=== PATIENT | female | born 1980 | race African-American/Black ===

== ENCOUNTER 2018-08-14 19:15 | Emergency (ER) | payer BC ==
--- NOTE | 2018-08-14 21:00 | ER ---
Nurse's Notes [facility] Name: Sowmya Simms Age: 38 yrs Sex: Female : 1980 Arrival Date: 08/14/2018 Time: 19:19 Bed 24 Private MD: None, None Diagnosis: Acute upper respiratory infection, unspecified Presentation: 08/14 19:41 Presenting complaint: Patient states: "PATIENT COMPLAINS OF LIGHT HEADEDNESS LIKE rv ALMOST PASSING OUT. FEELS HOT AND ALSO SWEATING. PATIENT IS HAVING TROUBLE SWALLOWING.". Transition of care: patient was not received from another setting of care. Onset of symptoms was August 14, 2018 at 05:00. Risk Assessment: Do you want to hurt yourself or someone else? Patient reports no desire to harm self or others. Initial Sepsis Screen: Does the patient meet any 2 criteria? No. Patient's initial sepsis screen is negative. Does the patient have a suspected source of infection? No. Patient's initial sepsis screen is negative. Care prior to arrival: None. 19:41 Method Of Arrival: Ambulatory rv 19:41 Acuity: HENRI 4 rv Triage Assessment: 19:45 General: Appears in no apparent distress. comfortable, Behavior is calm, cooperative. rv Pain: Complains of pain in THROAT. EENT: No signs and/or symptoms were reported regarding the EENT system. Neuro: Level of Consciousness is awake, alert, obeys commands, Oriented to person, place, time, situation. Cardiovascular: Capillary refill < 3 seconds. Respiratory: Airway is patent. GI: No signs and/or symptoms were reported involving the gastrointestinal system. : No signs and/or symptoms were reported regarding the genitourinary system. Derm: Skin is intact. Musculoskeletal: No signs and/or symptoms reported regarding the musculoskeletal system. 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 - Social history:: Smoking status: Patient uses tobacco products, VAPE. - Ebola Screening: : Patient negative for fever greater than or equal to 101.5 degrees Fahrenheit, and additional compatible Ebola Virus Disease symptoms Patient denies exposure to infectious person Patient denies travel to an Ebola-affected area in the 21 days before illness onset. Screenin:48 Abuse screen: Denies threats or abuse. Denies injuries from another. Nutritional rv screening: No deficits noted. Tuberculosis screening: No symptoms or risk factors identified. Fall Risk None identified. Vital Signs: 19:46 BP 122 / 91 LA; Pulse 74; Resp 17 S; Temp 98.5(O); Pulse Ox 100% on R/A; Weight 83.91 rv kg (R); Height 5 ft. 3 in. (160.02 cm) (R); Pain 0/10; 21:19 BP 122 / 86 RA; Pulse 70; Resp 17 S; Pulse Ox 100% on R/A; rv 19:46 Body Mass Index 32.77 (83.91 kg, 160.02 cm) rv ED Course: 19:19 Patient arrived in ED. mr 19:20 None, None is Private Physician. mr 19:27 Delfin Walter PA is PHCP. jr8 19:27 Fahad Gutierrez MD is Attending Physician. jr8 19:44 Triage completed. rv 19:48 Patient has correct armband on for positive identification. Bed in low position. Call rv light in reach. Side rails up X 1. Pulse ox on. NIBP on. 19:48 Patient placed in an exam room, on a stretcher, on pulse oximetry, Patient notified of rv wait time. 21:18 No provider procedures requiring assistance completed. Patient did not have IV access rv during this emergency room visit. Administered Medications: No medications were administered Outcome: 21:00 Discharge ordered by . jr8 21:18 Discharged to home ambulatory. rv 21:18 Condition: good 21:18 Discharge instructions given to patient, Instructed on discharge instructions, follow up and referral plans. medication usage, Demonstrated understanding of instructions, follow-up care, medications, Prescriptions given X 3. 21:20 Patient left the ED. rv Signatures: Louise Kimball mr Delfin Walter PA PA jr8 Harris Parson RN RN rv
--- NOTE | 2018-08-14 21:00 | EDPHYS ---
Physician Documentation [facility] Name: Sowmya Simms Age: 38 yrs Sex: Female : 1980 Arrival Date: 08/14/2018 Time: 19:19 Bed 24 Private MD: None, None ED Physician Fahad Gutierrez HPI: 08/14 20:44 This 38 yrs old Black Female presents to ER via Ambulatory with complaints of Flu jr8 Symptoms. 20:44 Patient started with 2 day history of sore throat, rhinorrhea, chest congestion and jr8 tightness, body aches, and subjective fevers . Severity of symptoms: At their worst the symptoms were mild in the emergency department the symptoms are unchanged. The patient has not experienced similar symptoms in the past. The patient has not recently seen a physician. 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 - Social history:: Smoking status: Patient uses tobacco products, VAPE. - Ebola Screening: : Patient negative for fever greater than or equal to 101.5 degrees Fahrenheit, and additional compatible Ebola Virus Disease symptoms Patient denies exposure to infectious person Patient denies travel to an Ebola-affected area in the 21 days before illness onset. ROS: 20:44 Eyes: Negative for injury, pain, redness, and discharge, Neck: Negative for injury, jr8 pain, and swelling, Abdomen/GI: Negative for abdominal pain, nausea, vomiting, diarrhea, and constipation, Back: Negative for injury and pain, MS/Extremity: Negative for injury and deformity, Skin: Negative for injury, rash, and discoloration, Neuro: Negative for headache, weakness, numbness, tingling, and seizure. 20:44 Constitutional: Positive for body aches, chills, fever. 20:44 ENT: Positive for rhinorrhea, sinus congestion, sore throat. 20:44 Cardiovascular: Positive for chest pain, Negative for edema, orthopnea, palpitations, paroxysmal nocturnal dyspnea. 20:44 Respiratory: Positive for shortness of breath, Negative for cough, dyspnea on exertion, pleurisy, sputum production, wheezing. Exam: 20:44 Eyes: Pupils equal round and reactive to light, extra-ocular motions intact. Lids and jr8 lashes normal. Conjunctiva and sclera are non-icteric and not injected. Cornea within normal limits. Periorbital areas with no swelling, redness, or edema. ENT: Nares patent. Clear nasal drainage noted with mild turbinate erythema, no septal abnormalities noted. Tympanic membranes are normal and external auditory canals are clear. Oropharynx with no redness, swelling, or masses, exudates, or evidence of obstruction, uvula midline. Mucous membranes moist. Neck: Trachea midline, no thyromegaly or masses palpated, and no cervical lymphadenopathy. Supple, full range of motion without nuchal rigidity, or vertebral point tenderness. No Meningismus. Cardiovascular: Regular rate and rhythm with a normal S1 and S2. No gallops, murmurs, or rubs. Normal PMI, no JVD. No pulse deficits. Respiratory: Lungs have equal breath sounds bilaterally, clear to auscultation and percussion. No rales, rhonchi or wheezes noted. No increased work of breathing, no retractions or nasal flaring. Abdomen/GI: Soft, non-tender, with normal bowel sounds. No distension or tympany. No guarding or rebound. No evidence of tenderness throughout. Back: No spinal tenderness. No costovertebral tenderness. Full range of motion. Skin: Warm, dry with normal turgor. Normal color with no rashes, no lesions, and no evidence of cellulitis. MS/ Extremity: Pulses equal, no cyanosis. Neurovascular intact. Full, normal range of motion. Neuro: Awake and alert, GCS 15, oriented to person, place, time, and situation. Cranial nerves II-XII grossly intact. Motor strength 5/5 in all extremities. Sensory grossly intact. Cerebellar exam normal. Normal gait. Vital Signs: 19:46 BP 122 / 91 LA; Pulse 74; Resp 17 S; Temp 98.5(O); Pulse Ox 100% on R/A; Weight 83.91 rv kg (R); Height 5 ft. 3 in. (160.02 cm) (R); Pain 0/10; 21:19 BP 122 / 86 RA; Pulse 70; Resp 17 S; Pulse Ox 100% on R/A; rv 19:46 Body Mass Index 32.77 (83.91 kg, 160.02 cm) rv MDM: 19:53 Patient medically screened. jr8 20:59 Data reviewed: vital signs, nurses notes, lab test result(s), Flu: negative. Data jr8 interpreted: Pulse oximetry: on room air is 100 %. Interpretation: normal. Counseling: I had a detailed discussion with the patient and/or guardian regarding: the historical points, exam findings, and any diagnostic results supporting the discharge/admit diagnosis, lab results, the need for outpatient follow up, a family practitioner, to return to the emergency department if symptoms worsen or persist or if there are any questions or concerns that arise at home. 08/14 19:53 Order name: Strep; Complete Time: 20:46 8 08/14 19:53 Order name: Influenza Screen (a \T\ B); Complete Time: 20:46 8 08/14 19:53 Order name: EKG - Nurse/Tech; Complete Time: 20:02 [facility] 08/14 20:47 Order name: Throat Culture EDMS Administered Medications: No medications were administered Disposition: 08/14/18 21:00 Discharged to Home. Impression: Acute upper respiratory infection, unspecified. - Condition is Stable. - Prescriptions for Augmentin 875- 125 mg Oral Tablet - take 1 tablet by ORAL route every 12 hours for 7 days; 14 tablet. Prednisone 20 mg Oral Tablet - take 1 tablet by ORAL route once daily for 5 days; 5 tablet. Tessalon Perles 100 mg Oral Capsule - take 1 capsule by ORAL route every 8 hours As needed; 15 capsule. - Medication Reconciliation Form, Thank You Letter, Antibiotic Education, Prescription Opioid Use, Work release form form. - Follow up: Private Physician; When: 2 - 3 days; Reason: Recheck today's complaints, Continuance of care, Re-evaluation by your physician. - Problem is new. - Symptoms have improved. Addendum: 08/18/2018 21:56 Co-signature as Attending Physician, Fahad Gutierrez MD. g s Signatures: Dispatcher [employer] EDMS Delfin Walter PA PA jr8 Fahad Gutierrez MD MD gs Vicente, Ronaldo RN RN rv Corrections: (The following items were deleted from the chart) 08/14 21:20 21:00 08/14/2018 21:00 Discharged to Home. Impression: Acute upper respiratory rv infection, unspecified. Condition is Stable. Forms are Medication Reconciliation Form, Thank You Letter, Antibiotic Education, Prescription Opioid Use. Follow up: Private Physician; When: 2 - 3 days; Reason: Recheck today's complaints, Continuance of care, Re-evaluation by your physician. Problem is new. Symptoms have improved. jr8
[2018-08-14] MEDS ORDERED: predniSONE 20 MG TAB ONE (21:28)
--- NOTE | 2018-08-15 20:19 | EKG ---
Test Date: 2018-08-14 Test Time: 20:02:29 Entertainment Dancer: MEASUREMENT RESULTS: Intervals: Rate: 68 MD: 118 QRSD: 92 QT: 394 QTc: 418 [place]: P: 45 MD: 118 QRS: 42 T: 64 INTERPRETIVE STATEMENTS: Normal sinus rhythm Normal ECG No previous ECG available for comparison Electronically Signed On 08-15-18 20:18:23 CDT by Js Vale
== END 2018-08-14 21:20 | disposition home or self-care (01) ==
LOC: ER 19:15
DX: J06.9 Acute upper respiratory infection, unspecified (principal); Z72.0 Tobacco use
CPT/HCPCS: 87070; 87081; 87804; 93005; 99283; J7512

== ENCOUNTER 2019-04-26 10:44 | Emergency (ER) | payer BC ==
[2019-04-26 12:22] LABS: Absolute Lymphocytes (CBC) 1.2 K/uL (0.7-4.9); Hematocrit 37.8 % (36.0-45.0); MPV 7.4 fL (7.6-11.3); RBC Red Blood Cell Count 4.19 M/uL (3.86-4.86)
[2019-04-26] MEDS ORDERED: ONDANSETRON 4 MG/2 ML VIAL ONE (12:29)
[2019-04-26] MEDS ORDERED: NA CHLORIDE 0.9% 1,000 ML ONE (12:29)
[2019-04-26] MEDS ORDERED: MORPHINE 2 MG/ML SYR ONE (12:29)
[2019-04-26 12:39] LABS: Albumin 4.2 g/dL (3.4-5.0); Bilirubin Direct 0.2 mg/dL (0-0.2); Bilirubin Total 0.5 mg/dL (0.2-1.0); Potassium 3.6 mmol/L (3.5-5.1)
[2019-04-26 13:34] LABS: Urine Blood 1+ (NEG); Urine Glucose NEGATIVE (NEG); Urine Protein 1+ (NEG); Urine Specific Gravity >1.030 (1.005-1.030)
--- NOTE | 2019-04-26 14:32 | RAD REPORT ---
EXAM DESCRIPTION: CTAbdomen Pelvis W Contrast - 04/26/2019 2:24 pm CLINICAL HISTORY: Abdominal pain. ABD PAIN COMPARISON: No comparisons TECHNIQUE: Biphasic CT imaging of the abdomen and pelvis was performed with 100 ml non-ionic IV cont rast. All CT scans are performed using dose optimization technique as appropriate and may include automated exposure control or mA/KV adjustment according to patient size. FINDINGS: The lung bases are clear. The liver, spleen, pancreas, adrenal glands and kidneys are within normal limits. No bowel obstruction, free air, free fluid or abscess. Small fat containing umbilical hernia. The govind endix is normal. Prominent retention of stool throughout the colon seen. No evidence of significant l ymphadenopathy. No suspicious bony findings. IMPRESSION: Moderate fecal retention in the colon.
--- NOTE | 2019-04-26 14:39 | ER ---
Nurse's Notes [facility] Name: Sowmya Simms Age: 39 yrs Sex: Female : 1980 Arrival Date: 04/26/2019 Time: 10:48 Bed 20 Private MD: Diagnosis: Constipation;Gastrointestinal hemorrhage, unspecified Presentation: 04/26 11:01 Presenting complaint: Patient states: Bleeding from the anus for about 2 weeks now and ca1 has gotten really bad for the past couple days. Reports abdominal pain mostly on the L side, nausea, vomiting and dizziness. Last Regular BM: 2 weeks ago. Denies diarrhea and fever. No Hx of hemorrhoids. With Hx of Polyps and IBS. Pt is on diet pill called Contrave for 3 months. Transition of care: patient was not received from another setting of care. Onset of symptoms was April 26, 2019. Risk Assessment: Do you want to hurt yourself or someone else? Patient reports no desire to harm self or others. Initial Sepsis Screen: Does the patient meet any 2 criteria? No. Patient's initial sepsis screen is negative. Does the patient have a suspected source of infection? No. Patient's initial sepsis screen is negative. Care prior to arrival: None. 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 - Social history:: Smoking status: Patient/guardian denies using tobacco. - Ebola Screening: : Patient negative for fever greater than or equal to 101.5 degrees Fahrenheit, and additional compatible Ebola Virus Disease symptoms Patient denies exposure to infectious person Patient denies travel to an Ebola-affected area in the 21 days before illness onset No symptoms or risks identified at this time. - Family history:: not pertinent. Screenin:30 Abuse screen: Denies threats or abuse. Denies injuries from another. Nutritional wh screening: No deficits noted. Tuberculosis screening: No symptoms or risk factors identified. Fall Risk None identified. Assessment: 11:30 General: Appears in no apparent distress. Behavior is calm, cooperative, appropriate wh for age. Pain: Complains of pain in abdomen Pain does not radiate. Pain currently is 8 out of 10 on a pain scale. Quality of pain is described as crampy. Neuro: Level of Consciousness is awake, alert, obeys commands, Oriented to person, place, time, situation, Appropriate for age. Cardiovascular: Heart tones S1 S2. Respiratory: Airway is patent Respiratory effort is even, unlabored, Respiratory pattern is regular, symmetrical, Breath sounds are clear bilaterally. GI: Abdomen is flat, non-distended, Bowel sounds present X 4 quads. Abd is soft and non tender X 4 quads. Reports constipation, rectal bleeding. : No signs and/or symptoms were reported regarding the genitourinary system. EENT: No signs and/or symptoms were reported regarding the EENT system. Derm: Skin is intact, is healthy with good turgor. Musculoskeletal: Circulation, motion, and sensation intact. 13:24 Reassessment: Patient appears in no apparent distress at this time. No changes from previously documented assessment. Patient and/or family updated on plan of care and expected duration. Pain level reassessed. Patient is alert, oriented x 3, equal unlabored respirations, skin warm/dry/pink. 15:03 Reassessment: Patient appears in no apparent distress at this time. No changes from previously documented assessment. Patient and/or family updated on plan of care and expected duration. Pain level reassessed. Patient is alert, oriented x 3, equal unlabored respirations, skin warm/dry/pink. Patient states feeling better. Vital Signs: 11:07 BP 143 / 107; Pulse 92; Resp 16 S; Temp 97.1(TE); Pulse Ox 100% on R/A; Weight 88.45 kg ca1 (R); Height 5 ft. 3 in. (160.02 cm) (R); Pain 7/10; 12:27 BP 140 / 99; Pulse 99; Resp 20; Temp 98.2(O); Pulse Ox 100% on R/A; mh5 13:30 BP 130 / 93; Pulse 74; Resp 18; Pulse Ox 100% ; wh 15:04 BP 137 / 95; Pulse 79; Resp 18; Pulse Ox 100% ; wh 11:07 Body Mass Index 34.54 (88.45 kg, 160.02 cm) ca1 ED Course: 10:48 Patient arrived in ED. mr 11:06 Triage completed. [facility] 11:07 Arm band placed on left wrist. [facility] 11:11 Christian Lord is Primary Nurse. 11:15 Tomas Castano MD is Attending Physician. [facility] 12:24 Patient has correct armband on for positive identification. Placed in gown. Bed in low 5 position. Call light in reach. Side rails up X 1. Warm blanket given. Pulse ox on. NIBP on. 12:24 Initial lab(s) drawn, by nv, sent to lab. Urine collected: clean catch specimen, clear. 5 Inserted saline lock: 20 gauge in right antecubital area, using aseptic technique. Blood collected. 14:24 CT Abd/Pelvis - PO and IV Contrast In Process Unspecified. EDFL 15:07 No provider procedures requiring assistance completed. IV discontinued, intact, bleeding controlled, No redness/swelling at site. Administered Medications: 12:38 Drug: NS 0.9% 1000 ml Route: IV; Rate: 1 bolus; Site: right antecubital; 12:40 Drug: Zofran 4 mg Route: IVP; Site: right antecubital; 15:01 Follow up: Response: No adverse reaction; Pain is decreased; RASS: Alert and Calm (0) 12:42 Drug: morphine 2 mg Route: IVP; Site: right antecubital; 15:02 Follow up: Response: No adverse reaction; Pain is decreased; RASS: Alert and Calm (0) 15:01 Not Given (Patient Refused): Dulcolax Suppository 10 mg SD once 15:01 Not Given (Patient Refused): Lactulose 30 grams 45 ml PO once Outcome: 14:39 Discharge ordered by . [facility] 15:08 Discharged to home ambulatory. 15:08 Condition: stable 15:08 Discharge instructions given to patient, Instructed on discharge instructions, follow up and referral plans. medication usage, POC Demonstrated understanding of instructions, follow-up care, medications, POC Prescriptions given X 4. 15:15 Patient left the ED. dm5 Signatures: Dispatcher [facility] Mildred Andrade, COTY RN dm5 Tomas Castano MD MD cha Rivera, Mary mr Dillon, Fidelina 5 Risa, Christian Usman, Rosie, RN RN ca1 Corrections: (The following items were deleted from the chart) 11:07 11:01 Presenting complaint: Patient states: Bleeding from the anus for about 2 weeks ca1 now and has gotten really bad for the past couple days. Reports abdominal pain mostly on the L side, nausea, vomiting and dizziness. Denies diarrhea and fever. No Hx of hemorrhoids. With Hx of Polyps and IBS. Pt is on diet pill called Contrave for 3 months. ca1 19:25 15:08 Discharged to home ambulatory, [facility]
--- NOTE | 2019-04-26 14:40 | EDPHYS ---
Physician Documentation [facility] Name: Sowmya Simms Age: 39 yrs Sex: Female : 1980 Arrival Date: 04/26/2019 Time: 10:48 Bed 20 Private MD: TRAY Physician Tomas Castano HPI: 04/26 11:53 This 39 yrs old Black Female presents to ER via Ambulatory with complaints of Rectal kirby Bleeding, Vomiting. 11:53 The patient presents to the emergency department with bleeding from the rectum/anus, kirby that is moderate. Onset: The symptoms/episode began/occurred 7 day(s) ago. Context: the patient has no known special context relating to the rectal area complaint(s). Modifying factors: The symptoms are alleviated by nothing, The symptoms are aggravated by bowel movement. Associate signs and symptoms: The patient has no apparent associated signs or symptoms. The patient has experienced similar episodes in the past, several times. 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 - Social history:: Smoking status: Patient/guardian denies using tobacco. - Ebola Screening: : Patient negative for fever greater than or equal to 101.5 degrees Fahrenheit, and additional compatible Ebola Virus Disease symptoms Patient denies exposure to infectious person Patient denies travel to an Ebola-affected area in the 21 days before illness onset No symptoms or risks identified at this time. - Family history:: not pertinent. ROS: 11:53 Constitutional: Negative for fever, chills, and weight loss, Eyes: Negative for injury, kirby pain, redness, and discharge, ENT: Negative for injury, pain, and discharge, Neck: Negative for injury, pain, and swelling, Cardiovascular: Negative for chest pain, palpitations, and edema, Respiratory: Negative for shortness of breath, cough, wheezing, and pleuritic chest pain, Back: Negative for injury and pain, : Negative for injury, bleeding, discharge, and swelling, MS/Extremity: Negative for injury and deformity, Skin: Negative for injury, rash, and discoloration, Neuro: Negative for headache, weakness, numbness, tingling, and seizure, Psych: Negative for depression, anxiety, suicide ideation, homicidal ideation, and hallucinations, Allergy/Immunology: Negative for hives, rash, and allergies, Endocrine: Negative for neck swelling, polydipsia, polyuria, polyphagia, and marked weight changes, Hematologic/Lymphatic: Negative for swollen nodes, abnormal bleeding, and unusual bruising. 11:53 Abdomen/GI: Positive for abdominal pain, of the right lower quadrant and left lower quadrant. Exam: 11:53 Constitutional: This is a well developed, well nourished patient who is awake, alert, kirby and in no acute distress. Head/Face: Normocephalic, atraumatic. Eyes: Pupils equal round and reactive to light, extra-ocular motions intact. Lids and lashes normal. Conjunctiva and sclera are non-icteric and not injected. Cornea within normal limits. Periorbital areas with no swelling, redness, or edema. ENT: Nares patent. No nasal discharge, no septal abnormalities noted. Tympanic membranes are normal and external auditory canals are clear. Oropharynx with no redness, swelling, or masses, exudates, or evidence of obstruction, uvula midline. Mucous membranes moist. Neck: Trachea midline, no thyromegaly or masses palpated, and no cervical lymphadenopathy. Supple, full range of motion without nuchal rigidity, or vertebral point tenderness. No Meningismus. Chest/axilla: Normal chest wall appearance and motion. Nontender with no deformity. No lesions are appreciated. Cardiovascular: Regular rate and rhythm with a normal S1 and S2. No gallops, murmurs, or rubs. Normal PMI, no JVD. No pulse deficits. Respiratory: Lungs have equal breath sounds bilaterally, clear to auscultation and percussion. No rales, rhonchi or wheezes noted. No increased work of breathing, no retractions or nasal flaring. Back: No spinal tenderness. No costovertebral tenderness. Full range of motion. Female : Normal external genitalia. Skin: Warm, dry with normal turgor. Normal color with no rashes, no lesions, and no evidence of cellulitis. MS/ Extremity: Pulses equal, no cyanosis. Neurovascular intact. Full, normal range of motion. Neuro: Awake and alert, GCS 15, oriented to person, place, time, and situation. Cranial nerves II-XII grossly intact. Motor strength 5/5 in all extremities. Sensory grossly intact. Cerebellar exam normal. Normal gait. Psych: Awake, alert, with orientation to person, place and time. Behavior, mood, and affect are within normal limits. 11:53 Abdomen/GI: Inspection: abdomen appears normal, Bowel sounds: normal, Palpation: mild abdominal tenderness, in the right lower quadrant and left lower quadrant, Liver: no appreciated palpable abnormalities, Hernia: not appreciated. Vital Signs: 11:07 BP 143 / 107; Pulse 92; Resp 16 S; Temp 97.1(TE); Pulse Ox 100% on R/A; Weight 88.45 kg ca1 (R); Height 5 ft. 3 in. (160.02 cm) (R); Pain 7/10; 12:27 BP 140 / 99; Pulse 99; Resp 20; Temp 98.2(O); Pulse Ox 100% on R/A; mh5 13:30 BP 130 / 93; Pulse 74; Resp 18; Pulse Ox 100% ; wh 15:04 BP 137 / 95; Pulse 79; Resp 18; Pulse Ox 100% ; wh 11:07 Body Mass Index 34.54 (88.45 kg, 160.02 cm) ca1 MDM: 11:15 Patient medically screened. [facility] 11:55 Data reviewed: vital signs, nurses notes, lab test result(s), radiologic studies, CT kirby scan. 04/26 11:53 Order name: Basic Metabolic Panel; Complete Time: 12:52 [facility] 04/26 11:53 Order name: CBC with Diff; Complete Time: 12:52 [facility] 04/26 11:53 Order name: Creatinine for Radiology; Complete Time: 12:52 [facility] 04/26 11:53 Order name: Hepatic Function; Complete Time: 12:52 [facility] 04/26 11:53 Order name: Lipase; Complete Time: 12:52 [facility] 04/26 13:26 Order name: Urine Dipstick--Ancillary (enter results); Complete Time: 14:33 04/26 11:53 Order name: IV Saline Lock; Complete Time: 12:46 [facility] 04/26 11:53 Order name: CT Abd/Pelvis - PO and IV Contrast; Complete Time: 14:43 [facility] 04/26 13:26 Order name: Urine --Ancillary (enter results); Complete Time: 14:33 04/26 11:53 Order name: Labs collected and sent; Complete Time: 12:46 [facility] 04/26 11:53 Order name: Urine Dipstick-Ancillary (obtain specimen); Complete Time: 12:45 [facility] 04/26 11:53 Order name: Urine Test (obtain specimen); Complete Time: 12:45 [facility] Administered Medications: 12:38 Drug: NS 0.9% 1000 ml Route: IV; Rate: 1 bolus; Site: right antecubital; 12:40 Drug: Zofran 4 mg Route: IVP; Site: right antecubital; 15:01 Follow up: Response: No adverse reaction; Pain is decreased; RASS: Alert and Calm (0) 12:42 Drug: morphine 2 mg Route: IVP; Site: right antecubital; 15:02 Follow up: Response: No adverse reaction; Pain is decreased; RASS: Alert and Calm (0) 15:01 Not Given (Patient Refused): Dulcolax Suppository 10 mg [place] once 15:01 Not Given (Patient Refused): Lactulose 30 grams 45 ml PO once Disposition: 04/26/19 14:39 Discharged to Home. Impression: Constipation, Gastrointestinal hemorrhage, unspecified. - Condition is Stable. - Discharge Instructions: Constipation, Adult, Gastrointestinal Bleeding, Constipation, Adult, [id number], Gastrointestinal Bleeding, Asbr-ii-Ezlt, Rectal Bleeding, [id number]. - Prescriptions for Dulcolax 10 mg Rectal Suppository - insert 1 suppository by RECTAL route every 12 hours As needed; 10 suppository. Miralax 17 gram/dose Oral - take 1 packet by ORAL route once daily dilute powder in 8 ounces of water or juice; 14 packet. Bentyl 20 mg Oral Tablet - take 1 tablet by ORAL route every 6 hours As needed; 20 tablet. Zofran 4 mg Oral Tablet - take 1 tablet by ORAL route every 12 hours As needed; 20 tablet. - Medication Reconciliation Form, Thank You Letter, Antibiotic Education, Prescription Opioid Use form. - Follow up: Private Physician; When: 2 - 3 days; Reason: Recheck today's complaints, Continuance of care, Re-evaluation by your physician. - Problem is new. - Symptoms have improved. Signatures: Dispatcher [employer] Mildred Wilder, RN RN dm5 Tomas Castano MD MD cha Habalo, Winsy wh Acob, Cheryl RN RN ca1 Corrections: (The following items were deleted from the chart) 15:15 14:39 04/26/2019 14:39 Discharged to Home. Impression: Constipation; Gastrointestinal dm5 hemorrhage, unspecified. Condition is Stable. Forms are Medication Reconciliation Form, Thank You Letter, Antibiotic Education, Prescription Opioid Use. Follow up: Private Physician; When: 2 - 3 days; Reason: Recheck today's complaints, Continuance of care, Re-evaluation by your physician. Problem is new. Symptoms have improved. kirby
[2019-04-26] MEDS ORDERED: LACTULOSE 20 GM/30 ML UCUP ONE (14:45)
[2019-04-26] MEDS ORDERED: BISACODYL 10 MG RECTAL SUPP ONE (14:45)
[2019-04-26 16:21] VITALS: O2SAT 100
[2019-04-26 16:23] VITALS: TEMP 98.2
[2019-04-26 16:25] VITALS: BP 137/95
== END 2019-04-26 15:15 | disposition home or self-care (01) ==
LOC: ER 10:44
DX: K59.00 Constipation, unspecified (principal)
CPT/HCPCS: 85025; 80048; 36415; 81025; 80076; 81003; 83690; 74177; 96375; 96374; 99284; Q9967; J2270; J7030; J2405

== ENCOUNTER 2021-07-25 18:16 | Emergency (ER) | payer SELFPAY ==
--- OUTSIDE RECORDS SUMMARY | 2021-07-25 18:19 | XMS REPORT | Continuity of Care Document ---
:1980 Author Organization [facility] t Address [address] [place] [address] Care Team Providers Name Role Phone Lyric Primary Care Physician Arthur VINCENT, N Attending Clinician Marilu GIBSON Attending Clinician Unavailable Payers Payer Name Policy Type Policy Number Effective Date Expiration Date S ource Problems Condition Condition Condition Status Onset Resolution Last Treating Co mments Source Name Details Category Date Date Treatment Clinician Date No known No known Disease Unive rs active active ity of problems problems [facility] Allergies, Adverse Reactions, Alerts Allergy Allergy Status Severity Reaction(s) Onset Inactive Treating Comm ents Source Name Type Date Date Clinician NO KNOWN Drug Active Univers ALLERGIE Class ity of S [facility] Social History Social Habit Start Date Stop Date Quantity Comments Source History of Smoker University of tobacco use [facility] Exposure to Not sure [facility] SARS-CoV-[address] [facility] (event) [place] Tobacco use and 2021-02-28 2021-02-28 Never used Universit y of exposure 00:00:00 00:00:00 [facility] Alcohol intake 2021-02-28 2021-02-28 Lifetime University of 00:00:00 00:00:00 non-drinker [facility] (finding) [place] Sex Assigned At [birth year] Universit y of 00:00:00 00:00:00 [facility] Smoking Status Start Date Stop Date Source Former smoker 2021-02-28 00:00:00 2021-02-28 00:00:00 Universi ty [facility] Medications Ordered Filled Start Stop Current Ordering Indication Dosage Frequency Signature Comments Components Source Medication Medication Date Date Medication? Clinician (SIG) Name Name No known 2020-05 No Univers medications 0-07 ity of 15:22: [address] Vital Signs Vital Name Observation Time Observation Value Comments Source Systolic blood 2021-02-28 20:03:00 117 mm[Hg] Univer [facility] Diastolic blood 2021-02-28 20:03:00 73 mm[Hg] Unive rsity [facility] Heart rate 2021-02-28 20:03:00 70 /min [facility] Body temperature 2021-02-28 20:03:00 36.67 [facility] Respiratory rate 2021-02-28 20:03:00 18 /min [facility] Body height 2021-02-28 20:03:00 160 cm [facility] Body weight 2021-02-28 20:03:00 76.114 kg [facility] BMI 2021-02-28 20:03:00 29.72 kg/m2 [facility] Procedures This patient has no known procedures. Encounters Start End Encounter Admission Attending Care Care Encounter Source Date/Time Date/Time Type Type Clinicians Facility Department ID 2021-02-28 2021-02-28 Office Arthur [facility] [id number] Univers 14:47:40 15:55:15 Visit Cande Michel [employer]TER [id number] it y of REGIONAL [id number] Vamsi as MATERNAL [id number] Med ical & CHILD [address] [place] [address] 2021-02-28 2021-02-28 Outpatient R [facility] [id number] Univers 14:45:00 14:45:00 CANDE vergara [facility] Results This patient has no known results.
[2021-07-25 21:57] LABS: Absolute Lymphocytes (CBC) 1.6 K/uL (0.7-4.9); Hematocrit 37.4 % (36.0-45.0); Lymphocytes % 46.2 % (15.3-44.8); MPV 7.7 fL (7.6-11.3); RBC Red Blood Cell Count 3.98 M/uL (3.86-4.86)
[2021-07-25 22:01] LABS: Protime INR 0.95
[2021-07-25 22:08] LABS: ALT/SGPT 15 U/L (12-78); AST/SGOT 12 U/L (15-37); Alkaline Phosphatase 107 U/L (45-117); BUN Blood Urea Nitrogen 4 mg/dL (7-18); Bicarbonate 24 mmol/L (21-32); Bilirubin Total 0.4 mg/dL (0.2-1.0); Glucose Level 88 mg/dL (74-106); Lipase 81 U/L (73-393); Potassium 3.5 mmol/L (3.5-5.1); Protein, Total 7.8 g/dL (6.4-8.2); Sodium Level 137 mmol/L (136-145)
[2021-07-25 22:16] LABS: Bilirubin Direct < 0.1 mg/dL (0-0.2)
[2021-07-25 22:57] LABS: Urine Blood Trace-intact (Negative); Urine Glucose Negative (Negative); Urine Protein Negative (Negative); Urine Specific Gravity 1.025 (1.005-1.030); Urine pH 5.5 (5.0-7.0)
[2021-07-25 23:08] LABS: Urine Specific Gravity/Preg 1.025 (1.005-1.030)
--- NOTE | 2021-07-26 00:08 | ER ---
Nurse's Notes [facility] Name: Sowmya Simms Age: 41 yrs Sex: Female : 1980 Arrival Date: 07/25/2021 Time: 18:19 Bed 18 Private MD: Sandhya Gunter Diagnosis: Other hemorrhoids;GI bleed Presentation: 07/25 18:59 Chief complaint: Patient states: L sided abd pain for 10 days. Rectal bleeding for 10 ll1 days with nausea. No fever. Feels fatigue and weak. Coronavirus screen: Vaccine status: Patient reports being unvaccinated. Client denies travel out of the [place] in the last 14 days. At this time, the client does not indicate any symptoms associated with coronavirus-19. Ebola Screen: Patient denies travel to an Ebola-affected area in the 21 days before illness onset. Initial Sepsis Screen: Does the patient meet any 2 criteria? No. Patient's initial sepsis screen is negative. Does the patient have a suspected source of infection? Yes: Acute abdominal pain. Risk Assessment: Do you want to hurt yourself or someone else? Patient reports no desire to harm self or others. Onset of symptoms was July 19, 2021. 18:59 Method Of Arrival: Ambulatory ll1 18:59 Acuity: HENRI 3 ll1 Triage Assessment: 19:02 General: Appears uncomfortable, Behavior is calm, cooperative, appropriate for age. ll1 Pain: Complains of pain in L abd Quality of pain is described as aching. Neuro: No deficits noted. Cardiovascular: No deficits noted. Respiratory: No deficits noted. GI: Reports lower abdominal pain, upper abdominal pain, rectal bleeding, nausea. 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 Flu vaccine status is unknown. - Social history:: Smoking status: Patient denies any tobacco usage or history of. Screenin:14 Abuse screen: Denies threats or abuse. Denies injuries from another. Nutritional wen screening: No deficits noted. Tuberculosis screening: No symptoms or risk factors identified. Fall Risk None identified. Assessment: 21:12 General: Appears in no apparent distress. comfortable, Behavior is calm, cooperative, wen Reports "passing blood clots...this happened before, but it was because I was constipated..I called the tele doc and they told me to come in...". Pain: Complains of pain in just beneath both breasts, bilaterally. GI: Reports bloody stool. 21:16 GI: Bowel sounds present X 4 quads. wen 21:18 GI: Abd is soft and non tender X 4 quads. wen 23:15 Reassessment: Hcg was negative. The UA dip was given to the reception clerk and posted in the wen chart. The pt is resting comfortably and awaiting her CT. Vital Signs: 18:59 BP 132 / 87; Pulse 79; Resp 17; Temp 98.1; Pulse Ox 100% ; Weight 77.11 kg; Height 5 ll1 ft. 3 in. (160.02 cm); Pain 7/10; 21:11 BP 113 / 74; Pulse 73; Resp 16; Temp 98.2; Pulse Ox 100% on R/A; Pain 0/10; wen 22:14 BP 107 / 75; Pulse 73; Resp 16; Pulse Ox 100% on R/A; Pain 0/10; wen 23:12 BP 105 / 66; Pulse 72; Resp 16; Pulse Ox 100% on R/A; Pain 0/10; wen 18:59 Body Mass Index 30.11 (77.11 kg, 160.02 cm) ll1 ED Course: 18:19 Patient arrived in ED. mr 18:19 Sandhya Gunter is Private Physician. mr 19:01 Triage completed. ll1 19:03 Arm band placed on. ll1 21:11 Verona Garza, COTY is Primary Nurse. wen 21:12 Williams Bolden MD is Attending Physician. sp3 21:14 Patient has correct armband on for positive identification. Placed in gown. Bed in low wen position. Call light in reach. Side rails up X 1. athletic monitor on. Pulse ox on. NIBP on. Warm blanket given. Verbal reassurance given. 21:14 Inserted saline lock: 20 gauge in right antecubital area, using aseptic technique. wen Blood collected. 21:16 No provider procedures requiring assistance completed. wen 21:47 Ptt, Activated Sent. wen 21:47 PT-INR Sent. wen 21:48 Basic Metabolic Panel Sent. wen 21:48 CBC with Diff Sent. wen 21:48 Hepatic Function Sent. wen 21:48 Lipase Sent. wen 23:[address] via wheelchair. wen 23:39 Patient moved back from CT. wen 23:46 CT Abd/Pelvis - IV Contrast Only In Process Unspecified. EDMS 07/26 00:30 intact, bleeding controlled, No redness/swelling at site. Pressure dressing applied. wen Administered Medications: No medications were administered Outcome: 07/25 21:16 Condition: stable wen 07/26 00:08 Discharge ordered by . sp3 00:29 Patient left the ED. wen 00:30 Discharged to home ambulatory. wen 00:30 Discharge instructions given to patient. Signatures: Dispatcher [employer] EDOR Louise Kimball Lynsay, RN RN ll1 Williams Bolden MD MD sp3 Verona Garza RN RN wen Corrections: (The following items were deleted from the chart) 07/25 19:02 19:01 PSHx: None; ll1 ll1
--- NOTE | 2021-07-26 00:08 | EDPHYS ---
Physician Documentation [facility] Name: Sowmya Simms Age: 41 yrs Sex: Female : 1980 Arrival Date: 07/25/2021 Time: 18:19 Bed 18 Private MD: Sandhya Gunter ED Physician Williams Bolden HPI: 07/25 22:31 This 41 yrs old Black Female presents to ER via Ambulatory with complaints of Abdominal sp3 Pain, Rectal Bleeding. 22:31 41-year-old female with history of asthma, colon polyps, prior GI bleed, prior bleeding sp3 hemorrhoids, presents to the ED for bright red blood per rectum and dark red blood clots with bowel movements. Patient has no pain, headache, chest pain, shortness of breath, nausea, vomiting, constipation, diarrhea, melanotic stool, generalized weakness, or any other findings. Symptoms started earlier today and due to her prior history contacted her GI physician who told her to come in for evaluation.. 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 Flu vaccine status is unknown. - Social history:: Smoking status: Patient denies any tobacco usage or history of. ROS: 22:33 Constitutional: Negative for fever, chills, and weight loss, Eyes: Negative for injury, sp3 pain, redness, and discharge, ENT: Negative for injury, pain, and discharge, Neck: Negative for injury, pain, and swelling, Cardiovascular: Negative for chest pain, palpitations, and edema, Respiratory: Negative for shortness of breath, cough, wheezing, and pleuritic chest pain, Back: Negative for injury and pain, MS/Extremity: Negative for injury and deformity, Skin: Negative for injury, rash, and discoloration, Neuro: Negative for headache, weakness, numbness, tingling, and seizure, Allergy/Immunology: Negative for hives, rash, and allergies, Endocrine: Negative for neck swelling, polydipsia, polyuria, polyphagia, and marked weight changes. 22:33 All other systems are negative. Exam: 22:33 Constitutional: This is a well developed, well nourished patient who is awake, alert, sp3 and in no acute distress. Head/Face: Normocephalic, atraumatic. Eyes: Pupils equal round and reactive to light, extra-ocular motions intact. Lids and lashes normal. Conjunctiva and sclera are non-icteric and not injected. Cornea within normal limits. Periorbital areas with no swelling, redness, or edema. ENT: Nares patent. No nasal discharge, no septal abnormalities noted. External auditory canals are clear. Oropharynx with no redness, swelling, or masses, exudates, or evidence of obstruction, uvula midline. Mucous membranes moist. Neck: Trachea midline, no thyromegaly or masses palpated, and no cervical lymphadenopathy. Supple, full range of motion without nuchal rigidity, or vertebral point tenderness. No Meningismus. Chest/axilla: Normal chest wall appearance and motion. Nontender with no deformity. No lesions are appreciated. Cardiovascular: Regular rate and rhythm with a normal S1 and S2. No gallops, murmurs, or rubs. Normal PMI, no JVD. No pulse deficits. Respiratory: Lungs have equal breath sounds bilaterally, clear to auscultation and percussion. No rales, rhonchi or wheezes noted. No increased work of breathing, no retractions or nasal flaring. Back: No spinal tenderness. No costovertebral tenderness. Full range of motion. Skin: Warm, dry with normal turgor. Normal color with no rashes, no lesions, and no evidence of cellulitis. MS/ Extremity: Pulses equal, no cyanosis. Neurovascular intact. Full, normal range of motion. Neuro: Awake and alert, GCS 15, oriented to person, place, time, and situation. Cranial nerves II-XII grossly intact. Motor strength 5/5 in all extremities. Sensory grossly intact. Cerebellar exam normal. Normal gait. Psych: Awake, alert, with orientation to person, place and time. Behavior, mood, and affect are within normal limits. 22:33 Abdomen/GI: Abdomen is soft, nontender, nondistended with no peritoneal signs including rebound or guarding. Rectal exam demonstrates external hemorrhoid at approximately 6 PM location with mild bleeding. Stool is normal color and not melanotic.. Vital Signs: 18:59 BP 132 / 87; Pulse 79; Resp 17; Temp 98.1; Pulse Ox 100% ; Weight 77.11 kg; Height 5 ll1 ft. 3 in. (160.02 cm); Pain 7/10; 21:11 BP 113 / 74; Pulse 73; Resp 16; Temp 98.2; Pulse Ox 100% on R/A; Pain 0/10; wen 22:14 BP 107 / 75; Pulse 73; Resp 16; Pulse Ox 100% on R/A; Pain 0/10; wen 23:12 BP 105 / 66; Pulse 72; Resp 16; Pulse Ox 100% on R/A; Pain 0/10; wen 18:59 Body Mass Index 30.11 (77.11 kg, 160.02 cm) ll1 MDM: 21:48 Patient medically screened. sp3 22:34 Data reviewed: vital signs, nurses notes. ED course: 41-year-old female with bright red sp3 blood per rectum likely from hemorrhoidal source. Will obtain CT scan of the abdomen/pelvis, and obtain laboratory values. If work-up is negative, will discharge patient home with follow-up to her GI physician. I am not highly suspicious for hemorrhagic shock, brisk GI bleed, sepsis, mesenteric ischemia, ischemic bowel, or any other critical findings at this time.. 07/26 00:06 ED course: CT scan demonstrates no acute intestinal abnormality. Laboratory values sp3 reviewed and H\T\H are normal. Will discharge patient home at this time with GI follow-up.. 07/25 21:36 Order name: Basic Metabolic Panel; Complete Time: 23:40 sp3 07/25 21:36 Order name: CBC with Diff; Complete Time: 23:40 sp3 07/25 21:36 Order name: Hepatic Function; Complete Time: 23:40 sp3 07/25 21:36 Order name: Lipase; Complete Time: 23:40 sp3 07/25 21:36 Order name: PT-INR; Complete Time: 23:40 sp3 07/25 21:36 Order name: Ptt, Activated; Complete Time: 23:40 sp3 07/25 21:36 Order name: IV Saline Lock; Complete Time: 21:47 sp3 07/25 21:36 Order name: Labs collected and sent; Complete Time: 21:48 sp3 07/25 21:36 Order name: CT Abd/Pelvis - IV Contrast Only sp3 07/25 21:36 Order name: Urine Dipstick-Ancillary (obtain specimen); Complete Time: 21:47 sp3 07/25 22:45 Order name: Test, Serum sv1 07/25 22:45 Order name: Test Serum, Qual[place]; Complete Time: 23:40 EDMS 07/25 22:56 Order name: Urine Dipstick-Ancillary; Complete Time: 23:40 EDMS 07/25 22:57 Order name: Urine --Ancillary (enter results); Complete Time: 23:40 cs9 07/25 21:36 Order name: Urine Test (obtain specimen); Complete Time: 21:47 sp3 Administered Medications: No medications were administered Disposition Summary: 07/26/21 00:08 Discharge Ordered Location: Home sp3 Condition: Stable sp3 Diagnosis - Other hemorrhoids sp3 - GI bleed sp3 Discharge Instructions: - Discharge Summary Sheet sp3 - Gastrointestinal Bleeding sp3 - Hemorrhoids sp3 Forms: - Medication Reconciliation Form sp3 - Thank You Letter sp3 - Antibiotic Education sp3 - Prescription Opioid Use sp3 Signatures: Dispatcher [employer] Anniat Sherman, RN RN ll1 Williams Bolden MD MD sp3 Corrections: (The following items were deleted from the chart) 07/25 19:02 19:01 PSHx: None; ll1 ll1
[2021-07-26 04:13] VITALS: O2SAT 100
[2021-07-26 04:14] VITALS: TEMP 98.2
[2021-07-26 04:17] VITALS: BP 105/66
--- NOTE | 2021-07-26 11:05 | RAD REPORT ---
EXAM DESCRIPTION: CT - Abdomen Pelvis W Contrast - 07/26/2021 3:42 am CLINICAL HISTORY: 41 years Female ABD PAIN COMPARISON: 04/26/2019. TECHNIQUE: Contiguous axial images obtained through the abdomen and pelvis following IV contrast. Re formatted images obtained. This exam was performed according to our department optimization program which includes automated exp osure control, adjustment of the mA and/or kv according to patient size and/or use of iterative recon struction technique. FINDINGS: The lung bases are clear. Small area of enhancement in the right lobe of the liver which may represent a hemangioma. The spleen and pancreas appear unremarkable. No adrenal masses. The kidneys appear unremarkable. No hydronephrosis. The gallbladder is visualized. No aneurysmal dilatation of the aorta. The ascending, transverse and descending colon are slightly distended with stool. No bowel obstructio n. The appendix appears unremarkable. Fibroids in the uterus. Tubular fluid-filled structures around the uterus which could be from hydrosa lpinx or pyosalpinx. There is a probable corpus luteum cyst in the right ovary. Small amount of free fluid in the pelvis. Small fat-containing umbilical hernia. No acute osseous abnormality is identified. IMPRESSION: 1. Tubular fluid-filled structures around the uterus which could be from hydrosalpinx or pyosalpinx. Sonography could be utilized to further evaluate. 2. There is a probable corpus luteum cyst in the right ovary. 3. Small amount of free fluid in the pelvis. 4. Fibroids in the uterus. 5. Small area of enhancement in the right lobe of the liver which may represent a hemangioma. 6. The ascending, transverse and descending colon are slightly distended with stool. Electronically signed by: Santos Acosta MD 07/26/2021 12:03 AM DEVELOPMENT REPRESENTATIVE Due to temporary technical issues with the PACS/Fluency reporting system, reports are being signed by the in house radiologist without review as a courtesy to ensure prompt reporting. The interpreting r adiologist is fully responsible for the content of the report.
== END 2021-07-26 00:29 | disposition home or self-care (01) ==
LOC: ER 18:16
DX: K64.8 Other hemorrhoids (principal); Z91.013 Allergy to seafood
CPT/HCPCS: 36415; 74177; 80048; 80076; 81003; 81025; 83690; 84703; 85025; 85610; 85730; 99285; Q9967

== ENCOUNTER 2021-07-28 10:16 | Emergency (ER) | payer SELFPAY ==
--- OUTSIDE RECORDS SUMMARY | 2021-07-28 10:19 | XMS REPORT | Continuity of Care Document ---
:1980 Author Organization [facility] t Address [address] [place] [address] Care Team Providers Name Role Phone Lyric [...] rs active active ity of problems problems [facility] Allergies, Adverse Reactions, Alerts Allergy Allergy Status Severity Reaction(s) Onset Inactive Treating Comm ents Source Name Type Date Date Clinician NO KNOWN Drug Active Univers ALLERGIE Class ity of S [facility] Social History Social Habit Start Date Stop Date Quantity Comments Source History of Smoker University of tobacco use [facility] Exposure to Not sure [facility] SARS-CoV-2 [facility] (event) [place] Tobacco use and 2021-02-28 2021-02-28 Never used Universit y of exposure 00:00:00 00:00:00 [facility] Alcohol intake 2021-02-28 2021-02-28 Lifetime University of 00:00:00 00:00:00 non-drinker [facility] (finding) [place] Sex Assigned At [birth year] Universit y of 00:00:00 00:00:00 [facility] Smoking Status Start Date Stop Date Source Former smoker 2021-02-28 00:00:00 2021-02-28 00:00:00 Universi ty [facility] Medications Ordered Filled Start Stop Current Ordering Indication Dosage Frequency Signature Comments Components Source Medication Medication Date Date Medication? Clinician (SIG) Name Name No known 2020-05 No Univers medications 0-07 ity of 15:22: [address] Vital Signs Vital Name Observation Time Observation Value Comments Source Systolic blood 2021-02-28 20:03:00 117 mm[Hg] Univer sity of [facility] Diastolic blood 2021-02-28 20:03:00 73 mm[Hg] Unive rsity [facility] Heart rate 2021-02-28 20:03:00 70 /min [facility] Body temperature 2021-02-28 20:03:00 36.67 Tiny [facility] Res[facility] rate 2021-02-28 20:03:00 18 /min [facility] Body height 2021-02-28 20:03:00 160 cm [facility] Body weight 2021-02-28 20:03:00 76.114 kg [facility] BMI 2021-02-28 20:03:00 29.72 kg/m2 [facility] Procedures This patient has no known procedures. Encounters Start End Encounter Admission Attending Care Care Encounter Source Date/Time Date/Time Type Type Clinicians Facility Department ID 2021-02-28 2021-02-28 Office Arthur [facility] [id number] Univers 14:47:40 15:55:15 Visit Cande Michel [employer] [id number] it y of REGIONAL [id number] Vamsi as MATERNAL [id number] Med ical & CHILD [address] [place] [address] 2021-02-28 2021-02-28 Outpatient R ARTHUR [facility] [id number] Univers 14:45:00 14:45:00 CANDE vergara [facility] Results This patient has no known results.
[2021-07-28 10:38] LABS: Urine Blood Trace-intact (Negative); Urine Glucose Negative (Negative); Urine Protein Negative (Negative); Urine pH 8.5 (5.0-7.0)
[2021-07-28 10:48] LABS: Urine RBC <5 /HPF (NONE SEEN)
[2021-07-28 10:49] LABS: Urine Bacteria >50 /HPF (<20); Urine Mucus LIGHT /HPF (NONE SEEN)
--- NOTE | 2021-07-28 12:42 | RAD REPORT ---
EXAM DESCRIPTION: US - Pelvis Complete - 07/28/2021 11:59 am CLINICAL HISTORY: LLQ PAIN COMPARISON: Abdomen Pelvis W Contrast dated 07/25/2021 TECHNIQUE: Transabdominal pelvic sonography was performed. FINDINGS: Transabdominal and endovaginal pelvic sonography were performed. Findings are incorporated into a single report that is detailed in the endovaginal examination. IMPRESSION: Transabdominal sonography was performed with findings incorporated into the endovaginal ultrasound report.
--- NOTE | 2021-07-28 12:46 | RAD REPORT ---
EXAM DESCRIPTION: US - Transvaginal Study Probe - 07/28/2021 11:59 am CLINICAL HISTORY: ABD PAIN COMPARISON: Pelvis Complete dated 07/28/2021; Abdomen Pelvis W Contrast dated 07/25/2021 TECHNIQUE: Endovaginal sonography was performed. FINDINGS: Transabdominal and endovaginal pelvic sonography examinations were performed with the find ings from growth examinations incorporated into this report. Uterus measures approximately 8 x 5 x 5.5 cm. Endometrial stripe is 9 mm in maximum thickness with no endometrial mass or polyp identifiable. The endometrium - myometrium interface is preserved. Approxi mately 4 centimeter oval heterogeneous hypoechoic mass projects from the anterior margin of the uteru s. This is believed to be an exophytic fibroid a correlate to a finding on the CT study of July 25. Trace amount of free fluid is seen in the cul de sac, within physiologic limits. No fallopian tube dilatation is identified. Ovaries were visualized on the transabdominal examination . Both are normal size with no dominant solid or cystic mass is identifiable. Doppler evaluation show s normal blood flow in the ovarian stroma. No adnexal abnormalities identified. IMPRESSION: Approximately 4 centimeter exophytic anterior uterine wall fibroid. Uterus is otherwise unremarkable. No ovarian or adnexal abnormalities identified.
--- NOTE | 2021-07-28 12:49 | ER ---
Nurse's Notes [facility] Name: Sowmya Simms Age: 41 yrs Sex: Female : 1980 Arrival Date: 07/28/2021 Time: 10:19 Bed 19 Private MD: Sandhya Gunter Diagnosis: UTI/ Urinary tract infection, site not specified Presentation: 07/28 10:28 Chief complaint: Patient states: ABD pain x 2 weeks, denies N/V/D. Coronavirus screen: vg1 Vaccine status: Patient reports being unvaccinated. Client denies travel out of the [place] in the last 14 days. Ebola Screen: Patient negative for fever greater than or equal to 101.5 degrees Fahrenheit, and additional compatible Ebola Virus Disease symptoms. Initial Sepsis Screen: Does the patient meet any 2 criteria? No. Patient's initial sepsis screen is negative. Does the patient have a suspected source of infection? No. Patient's initial sepsis screen is negative. Risk Assessment: Do you want to hurt yourself or someone else? Patient reports no desire to harm self or others. Onset of symptoms was July 08, 2021. 10:28 Method Of Arrival: Ambulatory vg1 10:28 Acuity: HENRI 3 vg1 Triage Assessment: 10:30 General: Appears in no apparent distress. comfortable, Behavior is calm, cooperative. vg1 Pain: Complains of pain in umbilical area, left upper quadrant, right lower quadrant and left lower quadrant Pain currently is 8 out of 10 on a pain scale. GI: Abdomen is round non-distended. 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 07/08/2021 vg1 Historical: - Allergies: 10:30 Nuts; vg1 10:30 SEAFOOD; vg1 - Home Meds: 10:30 None [Active]; vg1 - PMHx: 10:30 Asthma; vg1 - Immunization history:: Client reports having NOT received the Covid vaccine. - Social history:: Smoking status: Patient denies any tobacco usage or history of. Screenin:30 Abuse screen: Denies threats or abuse. jh6 10:30 Nutritional screening: No deficits noted. Tuberculosis screening: No symptoms or risk jh6 factors identified. Fall Risk None identified. Assessment: 10:39 General: Appears in no apparent distress. comfortable, well groomed, well developed, jh6 Behavior is calm, cooperative. Pain: Complains of pain in umbilical area, left upper quadrant and left lower quadrant Pain currently is 2 out of 10 on a pain scale. Quality of pain is described as aching. : Reports cramping, in bilateral lower quadrant(s). 10:42 GI: Bowel sounds present X 4 quads. Abd is non tender. jh6 11:52 Reassessment: No changes from previously documented assessment. jh6 13:00 Reassessment: Patient and/or family updated on plan of care and expected duration. Pain jh6 level reassessed. Patient is alert, oriented x 3, equal unlabored respirations, skin warm/dry/pink. 13:00 Pain: Complains of pain in abdomen Pain currently is 3 out of 10 on a pain scale. jh6 Vital Signs: 10:28 BP 138 / 80; Pulse 80; Resp 16; Temp 98.6(O); Pulse Ox 100% ; Weight 77.11 kg; Height 5 vg1 ft. 3 in. (160.02 cm); Pain 8/10; 11:20 BP 118 / 85; Pulse 76; Resp 18; Pulse Ox 100% ; Pain 2/10; jh6 13:00 BP 123 / 76; Pulse 80; Resp 17; Pulse Ox 100% ; Pain 3/10; jh6 10:28 Body Mass Index 30.11 (77.11 kg, 160.02 cm) vg1 ED Course: 10:19 Patient arrived in ED. as 10:19 Sandhya Gunter is Private Physician. as 10:20 Deirdre Mitchell FNP-C is [facility]. kb 10:20 Kolby Power MD is Attending Physician. kb 10:30 Triage completed. vg1 10:30 Suzette Banuelos, COTY is Primary Nurse. jh6 10:30 Arm band placed on. vg1 10:41 Urine collected: clean catch specimen, clear, Amount Voided: 30mL. jh6 10:41 No provider procedures requiring assistance completed. jh6 10:42 Bed in low position. Call light in reach. Side rails up X 1. jh6 10:53 u/s at bedide. jh6 11:59 US Transvaginal Study (Probe) In Process Unspecified. EDMS 11:59 Pelvis Complete In Process Unspecified. EDMS 13:15 IV discontinued, intact, bleeding controlled, No redness/swelling at site. Pressure 6 dressing applied. Administered Medications: No medications were administered Outcome: 12:48 Discharge ordered by . rafael 13:21 Discharged to home ambulatory. 6 13:21 Condition: good 13:21 Discharge instructions given to patient, Instructed on discharge instructions, follow up and referral plans. Demonstrated understanding of instructions, follow-up care, medications, Prescriptions given X 1. 13:22 Patient left the ED. 6 Signatures: Dispatcher [employer] EDAR Deirdre Mitchell, SHUTTLE FILLER-C MELISA-Jessi Tapia Victoria, RN RN vg1 Suzette Banuelos, RN RN jh6
--- NOTE | 2021-07-28 12:49 | EDPHYS ---
Physician Documentation [facility] Name: Sowmya Simms Age: 41 yrs Sex: Female : 1980 Arrival Date: 07/28/2021 Time: 10:19 Bed 19 Private MD: Sandhya Gunter ED Physician Kolby Power HPI: 07/28 12:00 This 41 yrs old Black Female presents to ER via Ambulatory with complaints of Abdominal kb Pain, Pelvic Pain. 12:00 The patient presents with abdominal pain in the lower abdomen. Modifying factors: The kb symptoms are alleviated by nothing, the symptoms are aggravated by nothing. Severity of pain: At its worst the pain was moderate in the emergency department the pain is unchanged. The patient has not experienced similar symptoms in the past. The patient has not recently seen a physician. 12:01 Onset: The symptoms/episode began/occurred 2 week(s) ago. The symptoms do not radiate. kb Associated signs and symptoms: none. The symptoms are described as constant. Pt reports diffuse abd pain, worse across the lower abd that started 2 weeks ago. Was seen here recently and had blood work and CT done. States she came back today because she has been looking over her results and looking things up. Pt believes she needs antibiotics.. 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 - Social history:: Smoking status: Patient denies any tobacco usage or history of. ROS: 12:00 Constitutional: Negative for fever, chills, and weight loss. kb 12:00 Abdomen/GI: Positive for abdominal pain, Negative for nausea, vomiting, and diarrhea. 12:00 : Positive for urinary frequency. 12:00 All other systems are negative. Exam: 12:00 Constitutional: This is a well developed, well nourished patient who is awake, alert, kb and in no acute distress. Head/Face: Normocephalic, atraumatic. ENT: Moist Mucous membranes Cardiovascular: Regular rate and rhythm with a normal S1 and S2. No gallops, murmurs, or rubs. No pulse deficits. Respiratory: Respirations even and unlabored. No increased work of breathing. Talking in full sentences Abdomen/GI: Soft, non-tender. No distention Skin: Warm, dry with normal turgor. Normal color. MS/ Extremity: Pulses equal, no cyanosis. Neurovascular intact. Full, normal range of motion. Neuro: Awake and alert, GCS 15, oriented to person, place, time, and situation. Moves all extremities. Normal gait. Psych: Awake, alert, with orientation to person, place and time. Behavior, mood, and affect are within normal limits. Vital Signs: 10:28 BP 138 / 80; Pulse 80; Resp 16; Temp 98.6(O); Pulse Ox 100% ; Weight 77.11 kg; Height 5 vg1 ft. 3 in. (160.02 cm); Pain 8/10; 11:20 BP 118 / 85; Pulse 76; Resp 18; Pulse Ox 100% ; Pain 2/10; jh6 13:00 BP 123 / 76; Pulse 80; Resp 17; Pulse Ox 100% ; Pain 3/10; jh6 10:28 Body Mass Index 30.11 (77.11 kg, 160.02 cm) vg1 MDM: 10:22 Patient medically screened. kb 12:00 Data reviewed: vital signs, nurses notes. Data interpreted: Pulse oximetry: on room air kb is 100 %. Interpretation: normal. 12:47 Counseling: I had a detailed discussion with the patient and/or guardian regarding: the kb historical points, exam findings, and any diagnostic results supporting the discharge/admit diagnosis, lab results, radiology results, the need for outpatient follow up, an OB/Gyne specialist, to return to the emergency department if symptoms worsen or persist or if there are any questions or concerns that arise at home. 07/28 10:28 Order name: Urine Microscopic Only; Complete Time: 11:08 kb 07/28 10:37 Order name: Urine Dipstick-Ancillary; Complete Time: 10:41 EDMS 07/28 10:28 Order name: US Transvaginal Study (Probe); Complete Time: 12:47 kb 07/28 10:38 Order name: Urine --Ancillary (enter results) eb 07/28 10:39 Order name: Urine --Ancillary; Complete Time: 10:45 EDMS 07/28 11:27 Order name: Pelvis Complete; Complete Time: 12:47 [facility] 07/28 10:28 Order name: Urine Dipstick-Ancillary (obtain specimen); Complete Time: 10:31 kb 07/28 10:28 Order name: Urine Test (obtain specimen); Complete Time: 10:31 kb Administered Medications: No medications were administered Disposition: 18:51 Co-signature as Attending Physician, Kolby Power MD I agree with the assessment and rn plan of care. Attestation: The patient's history, exam findings, diagnostics, and a summary of any interventions or procedures was reviewed in detail with Deirdre RAVI. Disposition Summary: 07/28/21 12:48 Discharge Ordered Location: Home kb Condition: Stable kb Diagnosis - UTI/ Urinary tract infection, site not specified kb Followup: kb - With: Emergency Department - When: As needed - Reason: Worsening of condition Followup: kb - With: Private Physician - When: 2 - 3 days - Reason: Recheck today's complaints, Continuance of care, Re-evaluation by your physician Discharge Instructions: - Discharge Summary Sheet kb - Urinary Tract Infection, Adult, [id number] kb Forms: - Medication Reconciliation Form kb - Thank You Letter kb - Antibiotic Education kb - Prescription Opioid Use kb - Work release form eb Prescriptions: - Macrobid 100 mg Oral Capsule - take 1 capsule by ORAL route every 12 hours for 10 days; 20 capsule; Refills: kb 0, Product Selection Permitted Signatures: Dispatcher [employer] [facility] Deirdre Mitchell FNP-C FNP-Kolby Smallwood MD MD rn Garcia, Victoria RN RN vg1
[2021-07-28 13:27] VITALS: TEMP 98.6; O2SAT 100
[2021-07-28 13:30] VITALS: BP 123/76
== END 2021-07-28 13:22 | disposition home or self-care (01) ==
LOC: ER 10:16
DX: N39.0 Urinary tract infection, site not specified (principal); Z91.013 Allergy to seafood; Z91.018 Allergy to other foods
CPT/HCPCS: 76830; 76856; 81003; 81015; 81025; 99283

== ENCOUNTER 2022-07-13 08:05 | Emergency (ER) | payer SELFPAY ==
--- OUTSIDE RECORDS SUMMARY | 2022-07-13 08:09 | XMS REPORT | Continuity of Care Document ---
:1980 Author Organization [facility] t Address [address] [place] [address] [address]. [address] [place] [address] Care Team Providers Name Role Phone SHALONDA KHAN Primary Care Physician Unavailable CITLALY PONCE Attending Clinician Unavailable Citlaly Boateng Attending Clinician [phone] Doctor Unassigned, [place] Attending Clinician Unavailable Cande Milton Attending Clinician CANDE GIBSON Attending Clinician Unavailable CITLALY PONCE Admitting Clinician Unavailable Payers Payer Name Policy Type Policy Number Effective Date Expiration Date S edwar [facility] [id number] 2022 00:00:00 WOMEN Problems Condition Condition Condition Status Onset Resolution Last Treating Co mments Source Name Details Category Date Date Treatment Clinician Date Other Other Disease Active 2021-05 Univers general general 0-05 it[place] of [place] and advice and advice 00 Ct dical for for Branch contracept contracept lisa lisa management management Over Over Disease Active 2021-05 Univers weight weight 0-05 ity of 00:00: [place] 00 [facility] Hemorrhoid Hemorrhoid Disease Active U nivpeng s s 01-23 ity of 00:00: [place] 00 [facility] Allergies, Adverse Reactions, Alerts Allergy Allergy Status Severity Reaction(s) Onset Inactive Treating Comm ents Source Name Type Date Date Clinician NO KNOWN Drug Active Univers ALLERGIE Class ity of S [facility] Social History Social Habit Start Date Stop Date Quantity Comments Source History of Cigarette Smoker Universi ty of tobacco use [facility] Alcohol intake 2022-04-09 2022-04-09 Lifetime University of 00:00:00 00:00:00 non-drinker [facility] (finding) [place] Exposure to 2022-02-15 2022-02-25 Not sure University SARS-CoV-2 00:00:00 13:56:00 [facility] (event) [place] Tobacco use and 2022-01-23 2022-01-23 Smokeless tobacco Un iversity of exposure 00:00:00 00:00:00 non-user [facility] Sex Ass[birth year] At [birth year] Universit y of 00:00:00 00:00:00 [facility] Smoking Status Start Date Stop Date Source Ex-smoker 2022-01-23 00:00:00 2022-01-23 00:00:00 [facility] Medications Ordered Filled Start Stop Current Ordering Indication Dosage Frequency Signature Comments Components Source Medication Medication Date Date Medication? Clinician (SIG) Name Name No known 2021-05 No No known Unive rs medications 0-04 medication it y of 14:09: s [address] No known 2021-05 No No known Unive rs medications 0-04 medication it y of 14:09: s [address] No known 2021-05 No No known Unive rs medications 0-04 medication it y of 14:09: s [address] acyclovir 2021- No [id number] 400mg Take 1 Univers 400 mg 01-24 tablet by ity of tablet 00:00: 04:59 mouth in [place] 00 :00 [facility] morning Branch and 1 tablet at noon and 1 tablet in the evening. Do all this for 10 days. No known No No known Unive rs medications 01-23 medication it y of 14:30: s [address] No known No No known Unive rs medications - medication it y of 14:30: [address] Vital Signs Vital Name Observation Time Observation Value Comments Source Systolic blood 2022-02-25 18:57:00 116 mm[Hg] Univer sity of pressure [facility] Diastolic blood 2022-02-25 18:57:00 74 mm[Hg] Unive rsity of [facility] Branch Heart rate 2022-02-25 18:57:00 83 /min Universi ty of [facility] Body temperature 2022-02-25 18:57:00 36.44 Tiny Univ ersity of [facility] Branch Respiratory rate 2022-02-25 18:57:00 18 /min Univ ersity of [facility] Body height 2022-02-25 18:57:00 160 cm Universi ty of [facility] Body weight 2022-02-25 18:57:00 73.029 kg Universi ty of [place] [facility] BMI 2022-02-25 18:57:00 28.52 kg/m2 Universi ty of [facility] Branch Systolic blood 2022-01-23 18:41:00 119 mm[Hg] Univer sity of pressure [facility] Branch Diastolic blood 2022-01-23 18:41:00 75 mm[Hg] Unive rsity of pressure [facility] Heart rate 2022-01-23 18:41:00 82 /min Universi ty of [facility] Body temperature 2022-01-23 18:41:00 36.61 Tiny [facility] ersity of [place] [facility] Respiratory rate 2022-01-23 18:41:00 18 /min Univ ersity of [facility] Body height 2022-01-23 18:41:00 160 cm Universi ty of [place] [facility] [place] Body weight 2022-01-23 18:41:00 71.356 kg Universi ty of [place] [facility] [place] BMI 2022-01-23 18:41:00 27.87 kg/m2 Universi ty of [facility] Procedures Procedure Date / Time Performed Performing Clinician [facility] e ASSIGNMENT OF BENEFITS 2022-02-25 18:36:27 Doctor Unassigned, No [facility] Encounters Start End Encounter Admission Attending Care Care Encounter Source Date/Time Date/Time Type Type Clinicians Facility Department ID 2023-02-25 2023-02-25 Outpatient R KRIS, [facility] [id number] Univers 13:00:00 13:00:00 CITLALY martel [facility] 2022-04-09 2022-04-09 Outpatient R KRIS, [facility] RAD [id number] Univers 12:43:46 23:59:00 CITLALY martel [facility] 2022-04-09 2022-04-[address] [facility] [id number] Univers 12:43:46 23:59:00 Encounter Citlaly COTTON [id number] ity of [place] [id number] [facility] [id number] [facility] 800 Branch 2022-02-25 2022-02-[address] [facility] [id number] Univers 13:45:00 14:38:04 Visit Citlaly Putnam VISCERA WASHER [id number] ity of [facility] [id number] Vamsi as MATERNAL [phone] [facility] [address] [place] [address] 2022-02-25 2022-02-[address] [facility] [id number] Univers 13:45:00 14:38:04 CITLALY mazariegos [facility] 2022-02-25 2022-02-25 Orders Doctor CHRISTOPHER [id number] Univers 00:00:00 00:00:00 Only Unassigned, TONY [id number] ity of [place] [facility] [id number] Vamsi as [phone] [facility] 009 Branch 2022-01-24 2022-01-[address] [facility] [id number] Univers 00:00:00 00:00:00 Citlaly Putnam VISCERA WASHER [id number] ity of [facility] [id number] Vamsi as MATERNAL [id number] [facility] [address] [place] [address] 2022-01-23 2022-01-[address] [facility] [id number] Univers 13:30:00 14:35:07 CITLALY vergara o f [facility] 2022-01-23 2022-01-[address] [facility] [id number] Univers 13:30:00 14:35:07 Visit Citlaly Putnam VISCERA WASHER [id number] ity of [facility] [id number] Vamsi as MATERNAL [id number] [facility] [address] [place] [address] 2021-02-28 2021-02-28 Office Arthur [facility] [id number] Univers 14:47:40 15:55:15 Visit Cande Michel VISCERA WASHER [id number] it y of [facility] [id number] Vamsi as MATERNAL [id number] [facility] & CHILD [address] [place] [address] 2021-02-28 2021-02-28 Outpatient R [facility] [id number] Univers 14:45:00 14:45:00 CANDE vergara [facility] 2021-02-28 2021-02-28 Orders Doctor CHRISTOPHER [id number] Univers 00:00:00 00:00:00 Only Unassigned, TONY [id number] ity of [place] [facility] [id number] Vamsi as [phone] [place] [address] Branch Results This patient has no known results.
[2022-07-13] MEDS ORDERED: ONDANSETRON 4 MG (ODT) TAB ONE (08:38)
[2022-07-13 09:56] LABS: SARS-COV-2 RT PCR POSITIVE (NEGATIVE)
--- NOTE | 2022-07-13 09:56 | EDPHYS ---
Physician Documentation [facility] Name: Sowmya Simms Age: 42 yrs Sex: Female : 1980 Arrival Date: 07/13/2022 Time: 08:09 Bed 11 Private MD: ED Physician Matt Caldwell HPI: 07/13 08:12 This 42 yrs old Black Female presents to ER via Unassigned with complaints of Sore jh7 Throat. 08:12 The patient presents with sore throat. The patient describes throat pain as burning, jh7 raw. Onset: The symptoms/episode began/occurred 6 day(s) ago. Associated signs and symptoms: Pertinent positives: cough, rhinorrhea, Pertinent negatives chest pain, chills, diarrhea, fever, shortness of breath. Reports that she was exposed to COVID by her father. Also reports nausea.. Historical: - Allergies: 10:33 Nuts; iw 10:33 SEAFOOD; iw - Social history:: Smoking status: Patient reports the use of cigarette tobacco products. ROS: 08:12 Constitutional: Negative for fever, chills, and weight loss, Eyes: Negative for injury, jh7 pain, redness, and discharge, Neck: Negative for injury, pain, and swelling, Cardiovascular: Negative for chest pain, palpitations, and edema. 08:12 Back: Negative for injury and pain, MS/Extremity: Negative for injury and deformity, Skin: Negative for injury, rash, and discoloration, Neuro: Negative for headache, weakness, numbness, tingling, and seizure. 08:12 ENT: Positive for nasal discharge, sore throat. 08:12 Respiratory: Positive for cough, Negative for shortness of breath, wheezing. 08:12 Abdomen/GI: Positive for nausea, Negative for abdominal pain, vomiting, diarrhea, constipation. 08:12 All other systems are negative. Exam: 08:12 Constitutional: This is a well developed, well nourished patient who is awake, alert, jh7 and in no acute distress. Head/Face: Normocephalic, atraumatic. Neck: Trachea midline, no thyromegaly or masses palpated, and no cervical lymphadenopathy. Supple, full range of motion without nuchal rigidity, or vertebral point tenderness. No Meningismus. Cardiovascular: Regular rate and rhythm with a normal S1 and S2. No gallops, murmurs, or rubs. Normal PMI, no JVD. No pulse deficits. Respiratory: Lungs have equal breath sounds bilaterally, clear to auscultation and percussion. No rales, rhonchi or wheezes noted. No increased work of breathing, no retractions or nasal flaring. Back: No spinal tenderness. No costovertebral tenderness. Full range of motion. Skin: Warm, dry with normal turgor. Normal color with no rashes, no lesions, and no evidence of cellulitis. MS/ Extremity: Pulses equal, no cyanosis. Neurovascular intact. Full, normal range of motion. Neuro: Awake and alert, GCS 15, oriented to person, place, time, and situation. Motor strength 5/5 in all extremities. Sensory grossly intact. Normal gait. 08:12 ENT: TM's: are normal, Posterior pharynx: Tonsils: are normal in appearance, Uvula: normal, swelling, is not appreciated, post nasal drainage. Vital Signs: 08:20 Pulse 99; Resp 16; Temp 98.4; Pulse Ox 100% on R/A; iw MDM: 08:09 Patient medically screened. [facility] 10:05 Differential diagnosis: Allergic rhinitis, bronchitis, group A strep tonsillitis, jh7 pharyngitis, upper respiratory infection, viral syndrome COVID. Data reviewed: vital signs, nurses notes. I considered the following discharge prescriptions or medication management in the emergency department Medications were administered in the Emergency Department. See MAR. Counseling: I had a detailed discussion with the patient and/or guardian regarding: the historical points, exam findings, and any diagnostic results supporting the discharge/admit diagnosis, to return to the emergency department if symptoms worsen or persist or if there are any questions or concerns that arise at home. 07/13 08:16 Order name: COVID-19/FLU A+B [facility] 07/13 08:16 Order name: Strep [facility] 07/13 08:53 Order name: Group A Streptococcus Rapid Sc; Complete Time: 08:55 EDMS 07/13 09:56 Order name: COVID-19/FLU A+B; Complete Time: 09:57 EDMS Administered Medications: 08:41 Drug: Ondansetron 4 mg Route: PO; iw Disposition: 10:33 Co-signature as Attending Physician, Matt Caldwell MD I agree with the assessment and kdr plan of care. Disposition Summary: 07/13/22 09:56 Discharge Ordered Location: Home [facility] Problem: new [facility] Symptoms: are unchanged [facility] Condition: Stable 7 Diagnosis - Coronavirus infection, unspecified [facility] Followup: [facility] - With: Private Physician - When: 2 - 3 days - Reason: Recheck today's complaints Discharge Instructions: - Discharge Summary Sheet [facility] - COVID-19 [facility] - COVID-19 Frequently Asked Questions [facility] - 10 Things You Can Do to Manage Your COVID-19 Symptoms at Home - [place] [address] Forms: - Medication Reconciliation Form [facility] - Thank You Letter [facility] - Work release form Prescriptions: - ProAir HFA 90 mcg/actuation Inhalation HFA aerosol inhaler - inhale 2 puff by INHALATION route every 4-6 hours As needed; 1 Inhaler; [facility] Refills: 0, Product Selection Permitted - ondansetron 4 mg Oral tablet,disintegrating - place 1 tablet by TRANSLINGUAL route 4 times per day As needed; 20 tablet; [facility] Refills: 0, Product Selection Permitted - Tessalon Perles 100 mg Oral Capsule - take 1 capsule by ORAL route every 8 hours As needed; 15 capsule; Refills: 0, [facility] Product Selection Permitted Signatures: Dispatcher [employer] EDMatt Braswell MD MD kdr Williams, Irene, RN RN iw Suzette Martinez, SEC ACCOUNTANT SEC ACCOUNTANT [facility]
--- NOTE | 2022-07-13 09:56 | ER ---
Nurse's Notes [facility] Name: Sowmya Simms Age: 42 yrs Sex: Female : 1980 Arrival Date: 07/13/2022 Time: 08:09 Bed 11 Private MD: Diagnosis: Coronavirus infection, unspecified Presentation: 07/13 08:20 Chief complaint: Patient states: her dad tested positive for COVID , she is having a iw runny nose, cough, nausea, sore throat. Coronavirus screen: Client presents with at least one sign or symptom that may indicate coronavirus-19. Ebola Screen: Patient negative for fever greater than or equal to 101.5 degrees Fahrenheit, and additional compatible Ebola Virus Disease symptoms Patient denies exposure to infectious person. Patient denies travel to an Ebola-affected area in the 21 days before illness onset. No symptoms or risks identified at this time. Initial Sepsis Screen: Does the patient meet any 2 criteria? No. Patient's initial sepsis screen is negative. Does the patient have a suspected source of infection? No. Patient's initial sepsis screen is negative. Risk Assessment: Do you want to hurt yourself or someone else? Patient reports no desire to harm self or others. Onset of symptoms was July 07, 2022. 08:20 Method Of Arrival: Ambulatory iw 08:20 Acuity: HENRI 4 iw Triage Assessment: 09:00 General: Appears in no apparent distress. Behavior is calm, cooperative. iw Historical: - Allergies: 10:33 Nuts; iw 10:33 SEAFOOD; iw - Social history:: Smoking status: Patient reports the use of cigarette tobacco products. Screenin:28 [facility] ED Fall Risk Assessment (Adult) History of falling in the last 3 months, iw including since admission No falls in past 3 months (0 pts). Abuse screen: Denies threats or abuse. Denies injuries from another. Nutritional screening: No deficits noted. Tuberculosis screening: No symptoms or risk factors identified. Assessment: 08:25 General: Appears in no apparent distress. Behavior is calm, cooperative. Pain: iw Complains of pain in throat. Neuro: Level of Consciousness is awake, alert, obeys commands, Oriented to person, place, time, situation, Moves all extremities. Full function. Cardiovascular: Patient's skin is warm and dry. Respiratory: Airway is patent Respiratory effort is even, unlabored, Breath sounds are clear bilaterally. GI: Reports nausea. EENT: Throat is pink. Vital Signs: 08:20 Pulse 99; Resp 16; Temp 98.4; Pulse Ox 100% on R/A; iw ED Course: 08:09 Patient arrived in ED. as 08:09 Suzette Martinez FNP is [facility] 08:09 Matt Caldwell MD is Attending Physician. [facility] 08:21 Triage completed. iw 08:21 Arm band placed on. iw 08:30 Ariane Ibrahim, RN is Primary Nurse. iw 08:45 Strep Sent. 6 08:45 COVID-19/FLU A+B Sent. 6 10:27 No provider procedures requiring assistance completed. iw 10:28 Patient has correct armband on for positive identification. iw 10:28 Patient did not have IV access during this emergency room visit. iw Administered Medications: 08:41 Drug: Ondansetron 4 mg Route: PO; iw Medication: 10:28 VIS not applicable for this client. iw Outcome: 09:56 Discharge ordered by . [facility] 10:28 Discharged to home ambulatory. iw 10:28 Condition: good 10:28 Discharge instructions given to patient, Instructed on discharge instructions, follow up and referral plans. medication usage, Demonstrated understanding of instructions, follow-up care, medications, Prescriptions given X 3. 10:29 Patient left the ED. iw Signatures: Jessi Dillon Irene, RN RN Suzette Martinez FNP PLUMBING AND HEATING MECHANIC [facility] Ronit Bliss [facility]
[2022-07-13 10:37] VITALS: TEMP 98.4; O2SAT 100
== END 2022-07-13 10:29 | disposition home or self-care (01) ==
LOC: ER 08:05
DX: U07.1 COVID-19 (principal); Z72.0 Tobacco use; Z91.013 Allergy to seafood; Z91.018 Allergy to other foods
CPT/HCPCS: 0240U; 87070; 87081; 99283; Q0162

== ENCOUNTER 2024-07-03 16:50 | Emergency (ER) | payer OTHER ==
[2024-07-03] MEDS ORDERED: HYDROCODONE/APAP 7.5/325 MG TAB ONE (18:19)
[2024-07-03] MEDS ORDERED: IBUPROFEN 400 MG TAB ONE (18:19)
[2024-07-03] MEDS ORDERED: ACETAMINOPHEN 325 MG TABLET ONE (18:19)
--- NOTE | 2024-07-03 18:40 | RAD REPORT ---
EXAMINATION: XR RIGHT ANKLE CLINICAL INDICATION: . Pain;Deformity TECHNIQUE:Two view radiograph of the right ankle were obtained. COMPARISON: No prior exam. FINDINGS: Oblique fracture of the distal fibula is seen. Transverse fracture of the medial malleolus is also present. Mildly displaced posterior malleolus fracture. Moderate soft tissue swelling. No subtalar dislocation.
[2024-07-03] MEDS ORDERED: ONDANSETRON 4 MG/2 ML VIAL ONE ×2 (18:59→20:33)
[2024-07-03] MEDS ORDERED: FENTANYL CITR 100 MCG/2 ML ONE ×2 (19:00→20:32)
[2024-07-03] MEDS ORDERED: NA CHLORIDE 0.9% 500 ML ONE ×2 (19:00→22:11)
--- NOTE | 2024-07-03 21:25 | RAD REPORT ---
EXAMINATION: XR RIGHT ANKLE CLINICAL INDICATION: . post splint placement TECHNIQUE:Two view radiograph of the right ankle were obtained. COMPARISON: Earlier study same date FINDINGS: Trimalleolar fracture has been placed within a splint. Moderate tibiotalar joint space wide aydin anteriorly with anterior subluxation of the tibia relative to the talar dome. This appears mildly worse relative to the prior study. Moderate soft tissue swelling. Bone detail is limited.
[2024-07-03] MEDS ORDERED: ETOMIDATE 20 MG/10 ML VIAL IV ONE ×2 (22:10→23:06)
[2024-07-03] MEDS ORDERED: MIDAZOLAM HCL 2 MG/2 ML INJ ONE ×2 (22:11→23:07)
--- NOTE | 2024-07-03 22:41 | RAD REPORT ---
EXAMINATION: XR RIGHT ANKLE CLINICAL INDICATION: . post reduction TECHNIQUE:Two view radiograph of the right ankle were obtained. COMPARISON: Earlier study same date FINDINGS: Trimalleolar fracture is again noted. Widening of the anterior tibiotalar joint space with mild subluxation is again noted. It appears unchanged since most recent radiograph. Moderate soft tissue swelling.
--- NOTE | 2024-07-04 01:41 | ER ---
Nurse's Notes [facility] Name: Sowmya Simms Age: 44 yrs Sex: Female : 1980 Arrival Date: 07/03/2024 Time: 16:50 Bed 10 Private MD: Diagnosis: Displaced trimalleolar fracture of right lower leg, initial encounter for closed fracture Presentation: 07/03 17:26 Chief complaint: Patient states: R ankle pain and swelling [place] Coronavirus screen: Client denies travel out of the [place] in the last 14 days. Ebola Screen: Patient denies exposure to infectious person. Patient denies travel to an Ebola-affected area in the 21 days before illness onset. Initial Sepsis Screen: Does the patient meet any 2 criteria? No. Patient's initial sepsis screen is negative. Does the patient have a suspected source of infection? No. Patient's initial sepsis screen is negative. Risk Assessment: Do you want to hurt yourself or someone else? Patient reports no desire to harm self or others. Onset of symptoms was July 03, 2024. 17:26 Method Of Arrival: Wheelchair ss 17:26 Acuity: HENRI 4 ss Triage Assessment: 19:00 Injury Description: Deformity sustained to right ankle is displaced. ha1 19:00 General: Appears uncomfortable, Behavior is cooperative. 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 - Infectious Disease History:: Denies. - Social history:: Smoking status: Patient denies any tobacco usage or history of. Screenin:14 [facility] ED Fall Risk Assessment (Adult) History of falling in the last 3 months, ph including since admission Yes- single mechanical fall (1 pt) Confusion or Disorientation No (0 pts) Intoxicated or Sedated No (0 pts) Impaired Gait Yes (1 pt) Mobility Assist Device Used No (0 pt) Altered Elimination No (0 pt) Score/Fall Risk Level 0 - 2 = Low Risk Oriented to surroundings, Maintained a safe environment, Hourly rounding (assess needs \T\ fall precautionary measures) done. Abuse screen: Denies threats or abuse. Denies injuries from another. Nutritional screening: No deficits noted. Tuberculosis screening: No symptoms or risk factors identified. Assessment: 19:13 General: Appears in no apparent distress. Behavior is calm, cooperative. Pain: ph Complains of pain in right ankle. Neuro: Level of Consciousness is awake, alert, obeys commands, Oriented to person, place, time, situation. Cardiovascular: Capillary refill < 3 seconds in bilateral fingers toes. Derm: Skin is pink, warm \T\ dry. Musculoskeletal: Bony deformity noted of right ankle. 19:50 General: Appears uncomfortable, Behavior is cooperative. Pain: Complains of pain in ha1 right ankle Pain does not radiate. Pain currently is 5 out of 10 on a pain scale. Quality of pain is described as throbbing. Neuro: Level of Consciousness is awake, alert, obeys commands, Oriented to person, place, time, situation. Cardiovascular: Capillary refill < 3 seconds in bilateral fingers toes. Respiratory: Airway is patent Respiratory effort is even, unlabored, Respiratory pattern is regular, symmetrical. Derm: Skin is normal. Musculoskeletal: Bony deformity noted of right ankle Swelling present in right ankle. 20:10 Reassessment: Patient and/or family updated on plan of care and expected duration. Pain ha1 level reassessed. Patient is alert, oriented x 3, equal unlabored respirations, skin warm/dry/pink. 21:10 Reassessment: Patient and/or family updated on plan of care and expected duration. Pain ha1 level reassessed. Patient is alert, oriented x 3, equal unlabored respirations, skin warm/dry/pink. 22:00 Reassessment: Patient and/or family updated on plan of care and expected duration. Pain ha1 level reassessed. Patient is alert, oriented x 3, equal unlabored respirations, skin warm/dry/pink. DR. KANG attempted to complete splint. 23:10 Reassessment: Patient and/or family updated on plan of care and expected duration. Pain ha1 level reassessed. Patient is alert, oriented x 3, equal unlabored respirations, skin warm/dry/pink. 07/04 00:10 Reassessment: Patient and/or family updated on plan of care and expected duration. Pain ha1 level reassessed. Patient is alert, oriented x 3, equal unlabored respirations, skin warm/dry/pink. CONSCIOUS SEDATION SET UP COMPLETED. CONSENTS SIGNED. 01:00 Reassessment: SEE FLOATING SHEET FOR CONSCIOUS SEDATION DOCUMENTATION. ha1 01:00 Reassessment: Patient and/or family updated on plan of care and expected duration. Pain ha1 level reassessed. Patient is alert, oriented x 3, equal unlabored respirations, skin warm/dry/pink. 02:00 Reassessment: Patient and/or family updated on plan of care and expected duration. Pain ha1 level reassessed. Patient is alert, oriented x 3, equal unlabored respirations, skin warm/dry/pink. Musculoskeletal: Circulation, motion, and sensation intact. Capillary refill < 3 seconds, in right toes. Vital Signs: 07/03 17:26 BP 125 / 96; Pulse 76; Resp 16; Pulse Ox 100% on R/A; Weight 72.57 kg; Height 5 ft. 3 ss in. ; Pain 0/10; 17:29 Temp 98.2(O); ss 20:00 BP 106 / 64; Pulse 69; Resp 17 S; Pulse Ox 100% on R/A; ha1 21:00 BP 117 / 87; Pulse 89; Resp 17; Pulse Ox 100% on R/A; ha1 22:00 BP 128 / 78; Pulse 89; Resp 17 S; Pulse Ox 100% on R/A; ha1 23:00 BP 123 / 74; Pulse 84; Resp 16 S; Pulse Ox 99% on R/A; ha1 02 01:00 BP 116 / 74; Pulse 81; Resp 17 S; Pulse Ox 100% on R/A; ha1 02:20 BP 116 / 88; Pulse 82; Resp 17 S; Pulse Ox 100% on R/A; ha1 07/03 17:26 Body Mass Index 28.34 (72.57 kg, 160.02 cm) 07/03 17:26 Pain Scale: Adult ss ED Course: 07/03 16:55 Patient arrived in ED. im 17:05 Tomas Mckeon PA is PHCP. cp 17:05 Kolby Power MD is Attending Physician. cp 17:28 Triage completed. ss 17:28 Arm band placed on left wrist. ss 18:05 XRAY Ankle RIGHT 3 view In Process Unspecified. EDMS 18:31 Kenya Michel, RN is Primary Nurse. ph 18:58 Inserted saline lock: 20 gauge in right antecubital area, using aseptic technique. kc6 Blood collected. Flushed with 10 mL NS. 19:14 Patient has correct armband on for positive identification. Bed in low position. Call ph light in reach. Side rails up X 1. Door closed. Noise minimized. Warm blanket given. Pillow given. Ice pack to injury. 20:50 Orthoglass splint: Posterior long leg splint applied on right leg. stirrup splint oe applied on right leg. 21:17 XRAY Ankle RIGHT 2 view In Process Unspecified. EDMS 22:35 XRAY Ankle RIGHT 2 view In Process Unspecified. EDMS 07/04 00:24 Assist provider with reduction of right ankle using manipulation, Set up for procedure. ha1 Performed by Tomas Kang MD Immobilized with OCL splint, Patient tolerated well. 00:43 Tomas Kang MD is Attending Physician. cp 01:25 XRAY Ankle RIGHT 2 view In Process Unspecified. EDMS 01:38 Zaire Spears MD is Referral Physician. cp 02:20 Provided Education on: follow up with orthopedic . ha1 02:20 IV discontinued, intact, bleeding controlled, No redness/swelling at site. Pressure ha1 dressing applied. Administered Medications: 07/03 17:34 CANCELLED (Physician Discretion): [id number] mg PO once cp 18:32 Drug: Acetaminophen PO 650 mg PO once Route: PO; ph 18:57 Follow up: Response: No adverse reaction; Pain is unchanged, physician notified kc6 18:32 Drug: Hydrocodone-Acetaminophen PO (7.5 mg-325 mg) 1 tabs PO once; RASS on ADMIN: ph Combtv4, Very Agttd3, Agttd2, Rstlss1, AlertClm0, Drwsy-1, Lt Sdtn-2, Mod Sdtn-3, Dp Sdtn-4, UnArsble-5 Route: PO; 18:57 Follow up: Response: No adverse reaction; Pain is unchanged, physician notified kc6 18:32 Drug: Ibuprofen PO 800 mg PO once Route: PO; ph 18:57 Follow up: Response: No adverse reaction; Pain is unchanged, physician notified kc6 19:15 Drug: NS 0.9% IV 500 ml IV at bolus once; to be given as a bolus over 60 minutes Route: kc6 IV; Rate: bolus; Site: right antecubital; 21:00 Follow up: Response: No adverse reaction; IV Status: Completed infusion; IV Intake: ha1 500ml 19:15 Drug: fentaNYL (PF) IVP 25 mcg IVP once Route: IVP; Site: right antecubital; kc6 19:50 Follow up: Response: No adverse reaction; Marked relief of symptoms; Pain is decreased; ha1 RASS: Alert and Calm (0) 19:15 Drug: Ondansetron IVP 4 mg IVP once; over 2 minutes Route: IVP; Site: right antecubital;kc6 20:00 Follow up: Response: No adverse reaction; Marked relief of symptoms ha1 20:35 Drug: Ondansetron IVP 4 mg IVP once; over 2 minutes Route: IVP; Site: right antecubital;ha1 21:00 Follow up: Response: No adverse reaction ha1 20:37 Drug: fentaNYL (PF) IVP 25 mcg IVP once Route: IVP; Site: right antecubital; ha1 21:00 Follow up: Response: No adverse reaction; Pain is decreased; RASS: Alert and Calm (0) ha1 07/04 00:24 Drug: Midazolam IVP or IV 4 mg IVP once Route: IVP; Site: right antecubital; ha1 00:28 Follow up: Response: No adverse reaction; RASS: Moderate sedation (-3) ha1 00:24 Drug: NS 0.9% IV 500 ml 500 ml IV at 1 bolus once; to be given as a bolus over 60 ha1 minutes Volume: 500 ml; Route: IV; Rate: 1 bolus; Site: left antecubital; 01:00 Follow up: Response: No adverse reaction; IV Status: Completed infusion; IV Intake: ha1 500ml 00:25 Drug: Etomidate IVP 10 mg IVP once Route: IVP; Site: right antecubital; ha1 00:28 Follow up: Response: No adverse reaction; RASS: Moderate sedation (-3) ha1 02:00 Drug: Ketorolac IVP 15 mg IVP once Route: IVP; Site: right antecubital; ha1 02:20 Follow up: Response: No adverse reaction; Marked relief of symptoms ha1 02:00 Drug: Hydrocodone-Acetaminophen PO (7.5 mg-325 mg) 1 tabs PO once; RASS on ADMIN: ha1 Combtv4, Very Agttd3, Agttd2, Rstlss1, AlertClm0, Drwsy-1, Lt Sdtn-2, Mod Sdtn-3, Dp Sdtn-4, UnArsble-5 Route: PO; 02:20 Follow up: Response: No adverse reaction; Marked relief of symptoms; Pain is decreased; ha1 RASS: Alert and Calm (0) 02:36 Not Given (Patient Refused): [id number] mg IVP once; over 1 to 2 minutes ha1 02:37 Not Given (Physician Discretion): [id number] mg IVP once ha1 Medication: 07/03 19:14 VIS not applicable for this client. ph Intake: 21:00 IV: 500ml; Total: 500ml. ha1 07/04 01:00 IV: 500ml; Total: 1000ml. ha1 Outcome: 01:40 Discharge ordered by . cp 02:20 Condition: stable ha1 02:20 Discharged to home via wheelchair, with crutches, with family, ha1 02:20 Discharge instructions given to patient, family, Instructed on discharge instructions, follow up and referral plans. medication usage, crutch walking, Demonstrated understanding of instructions, follow-up care, medications, crutch walking, Prescriptions given X 2, 02:42 Patient left the ED. ha1 Signatures: Dispatcher [employer] EDMS Meme Vivas RN RN ss Hall, Patricia, RN RN ph Page, Corey, PA PA cp Espinosa, Orlando oe Ayala, Heidy, RN RN 1 Heather Adams RN RN [email or web address] Suzi Arredondo
--- NOTE | 2024-07-04 01:41 | EDPHYS ---
Physician Documentation [facility] Name: Sowmya Simms Age: 44 yrs Sex: Female : 1980 Arrival Date: 07/03/2024 Time: 16:50 Bed 10 Private MD: Tomas Linares HPI: 07/03 17:35 This 44 yrs old Black Female presents to ER via Wheelchair with complaints of Leg cp Injury - right. 17:35 The patient presents with decreased range of motion, a deformity, an injury. The cp complaints affect the right ankle. Context: [place], the patient is not able to bear weight, must have assistance, Problem is a result from a previous injury: No. Onset: The symptoms/episode began/occurred just prior to arrival. Associated signs and symptoms: The patient has no apparent associated signs or symptoms. Treatment prior to arrival includes: no previous treatment. 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 - Infectious Disease History:: Denies. - Social history:: Smoking status: Patient denies any tobacco usage or history of. ROS: 17:40 MS/extremity: Positive for injury or acute deformity, decreased range of motion, pain, cp paresthesias, swelling, tenderness, of the right ankle, 17:40 Neck: Negative for pain with movement, pain at rest, cp 17:40 Back: Negative for pain at rest, pain with movement, 17:40 Neuro: Negative for altered mental status, dizziness, headache, syncope, 17:40 Eyes: Negative for injury, pain, redness, and discharge, cp 17:40 Constitutional: Negative for body aches, chills, fever, poor PO intake, 17:40 All other systems are negative, cp Exam: 17:45 Constitutional: The patient appears in no acute distress, alert, awake, non-toxic, well cp developed, well nourished, 17:45 Head/Face: Normocephalic, atraumatic. cp 17:45 Neck: ROM/movement: is normal, is supple, without pain, no range of motions cp limitations, 17:45 Chest/axilla: Inspection: normal, 17:45 Cardiovascular: Rate: normal, Rhythm: regular, 17:45 Respiratory: the patient does not display signs of respiratory distress, Respirations: normal, no use of accessory muscles, no retractions, labored breathing, is not present, Breath sounds: are clear throughout, no decreased breath sounds, 17:45 Abdomen/GI: Exam negative for discomfort, distension, guarding, Inspection: abdomen cp appears normal, 17:45 Back: pain, is absent, ROM is normal, 17:45 Musculoskeletal/extremity: Extremities: noted in the right ankle: decreased ROM, deformity, pain, swelling, tenderness, Pulses: noted to be 2+ in the right dorsalis pedis artery, Perfusion: the extremity is normally perfused throughout, the right foot Sensation intact. 17:45 Skin: overlying skin of right ankle intact. Vital Signs: 17:26 BP 125 / 96; Pulse 76; Resp 16; Pulse Ox 100% on R/A; Weight 72.57 kg; Height 5 ft. 3 ss in. ; Pain 0/10; 17:29 Temp 98.2(O); ss 20:00 BP 106 / 64; Pulse 69; Resp 17 S; Pulse Ox 100% on R/A; ha1 21:00 BP 117 / 87; Pulse 89; Resp 17; Pulse Ox 100% on R/A; ha1 22:00 BP 128 / 78; Pulse 89; Resp 17 S; Pulse Ox 100% on R/A; ha1 23:00 BP 123 / 74; Pulse 84; Resp 16 S; Pulse Ox 99% on R/A; ha1 0210 01:00 BP 116 / 74; Pulse 81; Resp 17 S; Pulse Ox 100% on R/A; ha1 02:20 BP 116 / 88; Pulse 82; Resp 17 S; Pulse Ox 100% on R/A; ha1 07/03 17:26 Body Mass Index 28.34 (72.57 kg, 160.02 cm) 02 17:26 Pain Scale: Adult ss Procedures: 01:30 Splinting: Splint applied to right ankle using Orthoglass splint, posterior long leg cp and stirrup. applied by myself. tech. post reduction film - reveals improved alignment, Examined by me, post splint application: neurovascular intact, Patient tolerated well. 01:30 Reduction: of the right ankle, using manipulation, Patient tolerated well. Post cp reduction film - reveals improved alignment. Procedural sedation: Pre-procedure assessment: Airway assessment: able to hyperextend neck, able to maintain airway, can open mouth without difficulty, Monitoring during procedure: monitor worker, continuous pulse oximetry, nurse at bedside at all times, Medications employed: Etomidate, 10 mg(s), Versed, 4 mg(s), Alternatives to procedural sedation discussed Post-procedure assessment: Respiratory status: even and unlabored, a reversal agent was not used. MDM: 07/03 17:27 Medical Screening Exam initiated cp 18:00 Differential diagnosis: dislocation, open fracture, closed fracture, sprain. 07/04 01:40 Data reviewed: vital signs, nurses notes, radiologic studies, plain films, I have cp discussed the patient's presentation/case with the attending Emergency Department Physician; and as a result, I will discharge patient. 01:40 Consideration of Admission/Observation Escalation of care including cp admission/observation considered. I considered the following discharge prescriptions or medication management in the emergency department Medications were administered in the Emergency Department. See MAR. Counseling: I had a detailed discussion with the patient and/or guardian regarding the historical points, exam findings, and any diagnostic results supporting the discharge/admit diagnosis, radiology results, the need for outpatient follow up, for definitive care, a orthopedic surgeon, to return to the emergency department if symptoms worsen or persist or if there are any questions or concerns that arise at home. Response to treatment: the patient's symptoms have markedly improved after treatment, and as a result, I will discharge patient. 07/03 17:28 Order name: XRAY Ankle RIGHT 3 view; Complete Time: 18:44 cp 07/03 18:44 Interpretation: Report reviewed. 07/03 20:49 Order name: XRAY Ankle RIGHT 2 view; Complete Time: 01:38 cp 07/03 22:16 Order name: XRAY Ankle RIGHT 2 view; Complete Time: 01:38 cp 07/04 00:38 Order name: XRAY Ankle RIGHT 2 view cp 07/03 17:28 Order name: Ice pack; Complete Time: 18:57 cp 07/03 18:36 Order name: Splint - Long Leg: Posterior w/ Stirrup; Complete Time: 01:01 cp 07/03 18:52 Order name: IV; Complete Time: 18:57 cp Administered Medications: 07/03 17:34 CANCELLED (Physician Discretion): [id number] mg PO once cp 18:32 Drug: Acetaminophen PO 650 mg PO once Route: PO; 18:57 Follow up: Response: No adverse reaction; Pain is unchanged, physician notified [facility] [place] 18:32 Drug: Hydrocodone-Acetaminophen PO (7.5 mg-325 mg) 1 tabs PO once; RASS on ADMIN: ph Combtv4, Very Agttd3, Agttd2, Rstlss1, AlertClm0, Drwsy-1, Lt Sdtn-2, Mod Sdtn-3, Dp Sdtn-4, UnArsble-5 Route: PO; 18:57 Follow up: Response: No adverse reaction; Pain is unchanged, physician notified [facility] [place] 18:32 Drug: Ibuprofen PO 800 mg PO once Route: PO; 18:57 Follow up: Response: No adverse reaction; Pain is unchanged, physician notified [facility] [place] 19:15 Drug: NS 0.9% IV 500 ml IV at bolus once; to be given as a bolus over 60 minutes Route: kc IV; Rate: bolus; Site: right antecubital; 21:00 Follow up: Response: No adverse reaction; IV Status: Completed infusion; IV Intake: ha1 500ml 19:15 Drug: fentaNYL (PF) IVP 25 mcg IVP once Route: IVP; Site: right antecubital; [facility] [place] 19:50 Follow up: Response: No adverse reaction; Marked relief of symptoms; Pain is decreased; ha1 RASS: Alert and Calm (0) 19:15 Drug: Ondansetron IVP 4 mg IVP once; over 2 minutes Route: IVP; Site: right antecubital;6 20:00 Follow up: Response: No adverse reaction; Marked relief of symptoms ha1 20:35 Drug: Ondansetron IVP 4 mg IVP once; over 2 minutes Route: IVP; Site: right antecubital;1 21:00 Follow up: Response: No adverse reaction ha1 20:37 Drug: fentaNYL (PF) IVP 25 mcg IVP once Route: IVP; Site: right antecubital; 1 21:00 Follow up: Response: No adverse reaction; Pain is decreased; RASS: Alert and Calm (0) ha1 07/04 00:24 Drug: Midazolam IVP or IV 4 mg IVP once Route: IVP; Site: right antecubital; ha1 00:28 Follow up: Response: No adverse reaction; RASS: Moderate sedation (-3) ha1 00:24 Drug: NS 0.9% IV 500 ml 500 ml IV at 1 bolus once; to be given as a bolus over 60 ha1 minutes Volume: 500 ml; Route: IV; Rate: 1 bolus; Site: left antecubital; 01:00 Follow up: Response: No adverse reaction; IV Status: Completed infusion; IV Intake: ha1 500ml 00:25 Drug: Etomidate IVP 10 mg IVP once Route: IVP; Site: right antecubital; ha1 00:28 Follow up: Response: No adverse reaction; RASS: Moderate sedation (-3) ha1 02:00 Drug: Ketorolac IVP 15 mg IVP once Route: IVP; Site: right antecubital; ha1 02:20 Follow up: Response: No adverse reaction; Marked relief of symptoms ha1 02:00 Drug: Hydrocodone-Acetaminophen PO (7.5 mg-325 mg) 1 tabs PO once; RASS on ADMIN: ha1 Combtv4, Very Agttd3, Agttd2, Rstlss1, AlertClm0, Drwsy-1, Lt Sdtn-2, Mod Sdtn-3, Dp Sdtn-4, UnArsble-5 Route: PO; 02:20 Follow up: Response: No adverse reaction; Marked relief of symptoms; Pain is decreased; ha1 RASS: Alert and Calm (0) 02:36 Not Given (Patient Refused): [id number] mg IVP once; over 1 to 2 minutes ha1 02:37 Not Given (Physician Discretion): [id number] mg IVP once ha1 Disposition Summary: 07/04/24 01:40 Discharge Ordered Notes: Location: Home cp Problem: new cp Symptoms: have improved cp Condition: Stable cp Diagnosis - Right Ankle Trimalleolar Fracture cp - Displaced trimalleolar fracture of right lower leg, initial encounter for closed cp fracture Followup: cp - With: Zaire Spears MD - When: 2 - 3 days - Reason: Recheck today's complaints Discharge Instructions: - Discharge Summary Sheet cp - Displaced Trimalleolar Ankle Fracture Treated With ORIF cp Forms: - Medication Reconciliation Form cp - Antibiotic Education cp - Prescription Opioid Use cp - Patient Portal Instructions cp - Leadership Thank You Letter cp - Work release form ha1 - Family Work Release ha1 Prescriptions: - acetaminophen-codeine 300-30 mg Oral tablet - take 2 tablet ORAL route every 8 to 12 hours; 20 tablet; Refills: 0, Product cp Selection Permitted - Ibuprofen 800 mg Oral Tablet - take 1 tablet ORAL route every 8 hours As needed take with food; 30 tablet; cp Refills: 0, Product Selection Permitted Signatures: Dispatcher [employer] EDMeme Garduno RN RN ss Kenya Michel RN RN Tomas Mckeon PA PA cp Felicia Perez RN RN ha1 Heather Adams RN RN kc6 Corrections: (The following items were deleted from the chart) 07/03 17:34 17:28 Acetaminophen PO 1000 mg PO once ordered. cp cp 07/05 00:35 07/03 17:40 All other systems are negative, cp cp
[2024-07-04] MEDS ORDERED: HYDROCODONE/APAP 7.5/325 MG TAB ONE (02:04)
[2024-07-04] MEDS ORDERED: KETOROLAC 30 MG/ML INJ ONE (02:04)
[2024-07-04 02:56] VITALS: O2SAT 100
[2024-07-04 03:02] VITALS: TEMP 98.2
[2024-07-04 03:08] VITALS: BP 106/64
--- NOTE | 2024-07-04 05:31 | RAD REPORT ---
XR ANKLE 2 VIEWS RIGHT INDICATION: Post reduction COMPARISON: No prior images are available for comparison at time of interpretation TECHNIQUE: 2 views of the right ankle FINDINGS: Overlying casting material limits the evaluation of fine bony and soft tissue details. Trimalleolar fracture of right ankle is visualized in near-anatomic alignment. No significant joint d islocation or subluxation. No definite fractures are seen. Soft tissue swelling at ankle. IMPRESSION: Trimalleolar fracture of right ankle in near-anatomic alignment. Electronically signed by: Judy Ospina MD 07/04/2024 02:18 AM [facility])[3] Due to temporary technical issues with the PACS/Webb[employer] reporting system, reports are being linda d by the in-house radiologist without review as a courtesy to ensure prompt reporting the interpreting radiologist is fully responsible for the content of the report. Transcribed Date/Time: 07/04/2024 5:30 AM
== END 2024-07-04 02:42 | disposition home or self-care (01) ==
LOC: ER 16:50
PROC: 0QSG34Z Reposition Right Tibia with Internal Fixation Device, Percutaneous Approach (ICD-10-PCS; principal; 2024-07-04)
DX: S82.851A Displaced trimalleolar fracture of right lower leg, initial encounter for closed fracture (principal)
CPT/HCPCS: 73610; 73600 ×3; 27818; J2250; J3010 ×2; J2405 ×2; J7040 ×2; 96361; 96374; 96375; 99285

== ENCOUNTER 2024-07-19 07:32 | Emergency (ER) | payer OTHER ==
[2024-07-19] MEDS ORDERED: NA CHLORIDE 0.9% 1,000 ML ONE (07:42)
[2024-07-19 08:07] LABS: Absolute Eosinophils 0.1 K/uL (0-0.5); Absolute Lymphocytes (CBC) 0.9 K/uL (0.7-4.9); Absolute Monocytes 0.3 K/uL (0.1-1.3); Absolute Neutrophil 5.4 K/uL (1.8-8.0); Basophils % 0.5 % (0-1.3); Hematocrit 32.6 % (36.0-45.0); Hemoglobin 11.3 g/dL (12.0-15.0); Lymphocytes % 13.4 % (15.3-44.8); MCH 32.1 pg (27.0-35.0); MCHC 34.6 g/dL (32.0-36.0); MCV 92.7 fL (80-100); MPV 7.7 fL (7.6-11.3); Monocytes % 4.3 % (3.3-12.3); Neutrophils % 80.8 % (41.7-73.7); Platelets 359 thou/uL (152-406); RBC Red Blood Cell Count 3.52 M/uL (3.86-4.86); Red Cell Distribution Width 13.3 % (12.1-15.2)
[2024-07-19 08:26] LABS: Albumin 3.4 g/dL (3.4-5.0); Albumin/Globulin Ratio 0.9 (1.1-1.8); Anion Gap 9.2 mEq/L (5.0-15.0); Bilirubin Total 0.7 mg/dL (0.2-1.0); Potassium 4.2 mEq/L (3.5-5.1); Protein, Total 7.4 g/dL (6.4-8.2)
--- NOTE | 2024-07-19 09:19 | RAD REPORT ---
EXAMINATION: CT ABDOMEN AND PELVIS WITH CONTRAST CLINICAL INDICATION: Female, 44 years old.Abd pain;Constipation TECHNIQUE: CT abdomen and pelvis was performed, after the administration of IV contrast, as per [facility]. Axial, sagittal and coronal reconstructions were obtained. One or more of the following dose reduction techniques were used: Automated exposure control, adjustment of the mA and/o r kV according to patient size, and/or iterative reconstruction. Unless otherwise specified, incidental findings do not require dedicated imaging follow-up. [id number]. COMPARISON: 07/25/2021 FINDINGS: LOWER CHEST: No acute process identified.No significant pericardial effusion. Mild circumferential th ickening of the distal esophagus which could reflect esophagitis. UPPER GI: No significant abnormality. LIVER: No significant focal abnormality. GALLBLADDER/BILE DUCTS: No biliary ductal dilatation.? PANCREAS: No mass, ductal dilation, or izabela-pancreatic fluid. SPLEEN: Unremarkable. ADRENALS: No adrenal masses. KIDNEYS AND URETERS: No hydronephrosis.No suspicious renal mass.No renal calculi. ABDOMINAL AORTA AND OTHER VESSELS: Normal caliber aorta and IVC. PERITONEUM: Perirectal edema. Small volume of free fluid in the right lower quadrant is likely physio logic. LYMPH NODES: No pathologic lymphadenopathy. ABDOMINAL WALL: Small fat containing umbilical hernia. SMALL BOWEL/COLON: Moderate pancolonic stool burden. Mild nonspecific periportal edema.Normal appendi x. URINARY BLADDER: Underdistended but grossly unremarkable. REPRODUCTIVE ORGANS: Uterine fibroids similar to prior. Corpus luteal cyst in the right adnexa. MUSCULOSKELETAL: No acute or suspicious osseous abnormality. ADDITIONAL FINDINGS: None. IMPRESSION: Moderate to large pancolonic stool burden consistent with constipation. Mild nonspecific perirectal e cheyrl but without wall thickening could be from fecal impaction.
[2024-07-19] MEDS ORDERED: FLEET ENEMA ADULT PR ONE (09:52)
--- NOTE | 2024-07-19 10:40 | ER ---
Nurse's Notes [facility] Name: Sowmya Simms Age: 44 yrs Sex: Female : 1980 Arrival Date: 07/19/2024 Time: 07:32 Bed 5 Private MD: Diagnosis: Constipation, unspecified;Fecal impaction Presentation: 07/19 07:34 Chief complaint: Patient states: they were toned out for 10/10 abd pain. pt reports she kc6 is s/p right foot surgery and hasn't had a BM in x3 weeks. states her last done of [place] was on Thursday. reports nausea, denies vomiting. Coronavirus screen: At this time, the client does not indicate any symptoms associated with coronavirus-19. Ebola Screen: No symptoms or risks identified at this time. Initial Sepsis Screen: Does the patient meet any 2 criteria? HR > 90 bpm. Does the patient have a suspected source of infection? No. Patient's initial sepsis screen is negative. Risk Assessment: Do you want to hurt yourself or someone else? Patient reports no desire to harm self or others. Onset of symptoms was July 19, 2024. 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 - Infectious Disease History:: Denies. - Social history:: Smoking status: Patient denies any tobacco usage or history of. - Family history:: not pertinent. - Hospitalizations: : No recent hospitalization is reported. Screenin:37 [facility] ED Fall Risk Assessment (Adult) History of falling in the last 3 months, kc6 including since admission No falls in past 3 months (0 pts) Confusion or Disorientation No (0 pts) Intoxicated or Sedated No (0 pts) Impaired Gait Yes (1 pt) Mobility Assist Device Used Yes (1 pt) Altered Elimination No (0 pt) Score/Fall Risk Level 0 - 2 = Low Risk Oriented to surroundings, Maintained a safe environment, Educated pt \T\ family on fall prevention, incl call for assistance when getting out of bed. Abuse screen: Denies threats or abuse. Denies injuries from another. Nutritional screening: No deficits noted. Tuberculosis screening: No symptoms or risk factors identified. Assessment: 07:37 General: Appears in no apparent distress. uncomfortable, well groomed, well developed, kc6 Behavior is calm, cooperative, appropriate for age. Pain: Complains of pain in abdomen diffusely Pain does not radiate. Pain currently is 10 out of 10 on a pain scale. Quality of pain is described as aching, crampy, Is intermittent. Neuro: Level of Consciousness is awake, alert, obeys commands, Oriented to person, place, time, situation, Appropriate for age. Cardiovascular: Capillary refill < 3 seconds. Respiratory: Airway is patent Trachea midline Respiratory effort is even, unlabored, Respiratory pattern is regular, symmetrical. GI: Abdomen is flat, Bowel sounds hypoactive in right upper quadrant, left upper quadrant, right lower quadrant and left lower quadrant Abdomen is tender to palpation X 4 quads. Reports bloating, constipation, cramping, nausea, Patient currently denies diarrhea, vomiting. : No signs and/or symptoms were reported regarding the genitourinary system. EENT: No signs and/or symptoms were reported regarding the EENT system. Derm: No signs and/or symptoms reported regarding the dermatologic system. Skin is intact, is healthy with good turgor, Skin is pink, warm \T\ dry. Musculoskeletal: No signs and/or symptoms reported regarding the musculoskeletal system. Circulation, motion, and sensation intact. Range of motion: intact in all extremities. 08:37 Reassessment: Patient appears in no apparent distress at this time. Patient and/or hb family updated on plan of care and expected duration. Pain level reassessed. Patient is alert, oriented x 3, equal unlabored respirations, skin warm/dry/pink. 09:45 Reassessment: Patient appears in no apparent distress at this time. No changes from kc6 previously documented assessment. Patient and/or family updated on plan of care and expected duration. Pain level reassessed. Patient is alert, oriented x 3, equal unlabored respirations, skin warm/dry/pink. 10:36 Reassessment: Patient appears in no apparent distress at this time. Patient and/or hb family updated on plan of care and expected duration. Pain level reassessed. Patient is alert, oriented x 3, equal unlabored respirations, skin warm/dry/pink. 10:37 Reassessment: Patient states feeling better. Patient states symptoms have improved. GI: kc6 Last BM was July 19, 2024. at 10:37. Vital Signs: 07:34 BP 149 / 91; Pulse 93; Resp 18 S; Temp 98.8(O); Pulse Ox 99% on R/A; Weight 74.84 kg kc6 (R); Height 5 ft. 3 in. (R); Pain 10; 07:34 Body Mass Index 29.23 (74.84 kg, 160.02 cm) kc6 07:34 Pain Scale: Adult kc6 ED Course: 07:33 Patient arrived in ED. hb 07:34 Heather Adams, RN is Primary Nurse. kc6 07:34 Kolby Power MD is Attending Physician. rn 07:36 Triage completed. kc6 07:36 Arm band placed on. kc6 07:37 Patient has correct armband on for positive identification. Bed in low position. Call kc6 light in reach. Side rails up X2. Pulse ox on. NIBP on. Door closed. Noise minimized. Lights dimmed. Warm blanket given. Pillow given. Verbal reassurance given. 07:37 Patient maintains SpO2 saturation greater than 95% on room air. kc6 07:56 Inserted saline lock: 20 gauge in right antecubital area, using aseptic technique. kc6 Blood collected. Flushed with 10 mL NS. 09:01 CT Abd/Pelvis - IV Contrast Only In Process Unspecified. EDMS 10:55 No provider procedures requiring assistance completed. IV discontinued, intact, kc6 bleeding controlled, No redness/swelling at site. Pressure dressing applied. Administered Medications: 07:53 Drug: NS 0.9% IV 1000 ml IV at 1 bolus Per protocol; to be given as a bolus over 60 kc6 minutes Route: IV; Rate: 1 bolus; Site: right antecubital; 10:37 Follow up: Response: No adverse reaction; IV Status: Completed infusion; IV Intake: kc6 1000ml 10:09 Drug: Fleet Enema NV 133 ml NV once; may repeat once Route: NV; kc6 10:36 Follow up: Response: No adverse reaction kc6 Medication: 10:55 VIS not applicable for this client. kc6 Intake: 10:37 IV: 1000ml; Total: 1000ml. kc6 Outcome: 10:40 Discharge ordered by . rn 10:55 Discharged to home via wheelchair, with family, kc6 10:55 Condition: improved 10:55 Discharge instructions given to patient, Instructed on discharge instructions, follow up and referral plans. Demonstrated understanding of instructions, follow-up care, 10:55 Patient left the ED. kc6 Signatures: Dispatcher [employer] EDMS Kolby Power MD MD rn Baxter, Heather, RN RN hb Campbell, Kaitlyn, RN RN kc6 Corrections: (The following items were deleted from the chart) 07:37 07:34 BP 149 / 1; Pulse 93bpm; Resp 18bpm; Spontaneous; Pulse Ox 99% RA; Temp 98.8F kc6 Oral; 74.84 kg Reported; Height 5 ft. 3 in. Reported; BMI: 29.2; Pain 03/03, Adult; kc6
--- NOTE | 2024-07-19 10:40 | EDPHYS ---
Physician Documentation [facility] Name: Sowmya Simms Age: 44 yrs Sex: Female : 1980 Arrival Date: 07/19/2024 Time: 07:32 Bed 5 Private MD: ED Physician Kolby Power HPI: 07/19 07:38 This 44 yrs old Black Female presents to ER via EMS with complaints of Abdominal Pain, rn Constipation. 07:38 The patient presents with abdominal pain in the lower abdomen, in the left lower rn quadrant. Onset: The symptoms/episode began/occurred 3 week(s) ago. The symptoms do not radiate. Associated signs and symptoms: Pertinent positives: constipation, Pertinent negatives: blood in stools, fever. Modifying factors: The symptoms are alleviated by nothing, the symptoms are aggravated by nothing. Severity of pain: At its worst the pain was moderate in the emergency department the pain is unchanged. The patient has not experienced similar symptoms in the past. The patient has not recently seen a physician. Patient reports constipation for 3 weeks associated with left lower quadrant abdominal pain. No fever or chills. Reports nausea but no vomiting. No history of bowel obstruction. Has history of IBS, recently had ankle fracture and has been taking hydrocodone. Is passing gas. 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 - Infectious Disease History:: Denies. - Social history:: Smoking status: Patient denies any tobacco usage or history of. - Family history:: not pertinent. - Hospitalizations: : No recent hospitalization is reported. ROS: 07:38 Constitutional: Negative for fever, chills, and weight loss, Cardiovascular: Negative rn for chest pain, palpitations, and edema, Respiratory: Negative for shortness of breath, cough, wheezing, and pleuritic chest pain, Abdomen/GI: Positive for abdominal pain and constipation MS/Extremity: Negative for injury and deformity, Neuro: Negative for headache, weakness, numbness, tingling, and seizure, Exam: 07:38 Constitutional: This is a well developed, well nourished patient who is awake, alert, rn and in no acute distress. Cardiovascular: Regular rate and rhythm with a normal S1 and S2. No gallops, murmurs, or rubs. Normal PMI, no JVD. No pulse deficits. Respiratory: Lungs have equal breath sounds bilaterally, clear to auscultation and percussion. No rales, rhonchi or wheezes noted. No increased work of breathing, no retractions or nasal flaring. Abdomen/GI: Mild left lower quadrant tenderness. No rebound or guarding. Tympanic to percussion Vital Signs: 07:34 BP 149 / 91; Pulse 93; Resp 18 S; Temp 98.8(O); Pulse Ox 99% on R/A; Weight 74.84 kg kc6 (R); Height 5 ft. 3 in. (R); Pain 10; 07:34 Body Mass Index 29.23 (74.84 kg, 160.02 cm) [facility] 07:34 Pain Scale: Adult [facility] MDM: 07:34 Medical Screening Exam initiated rn 10:39 Differential diagnosis: bowel obstruction, non-specific abd pain, Constipation, fecal rn impaction. Data reviewed: vital signs, nurses notes, lab test result(s), radiologic studies, CT scan, and as a result, I will discharge patient. Counseling: I had a detailed discussion with the patient and/or guardian regarding the historical points, exam findings, and any diagnostic results supporting the discharge/admit diagnosis, lab results, radiology results, the need for outpatient follow up, to return to the emergency department if symptoms worsen or persist or if there are any questions or concerns that arise at home. Response to treatment: the patient's symptoms have markedly improved after treatment, and as a result, I will discharge patient. Special discussion: I discussed with the patient/guardian in detail that at this point there is no indication for admission to the hospital. It is understood, however, that if the symptoms persist or worsen the patient needs to return immediately for re-evaluation. ED course: Patient had a large bowel movement here and feels much better. Will discharge home with return precautions. Told her to stop taking the pain medication since she is not having much pain from the ankle fracture now. Return precautions given and understood. I have personally reviewed all of the results, including but not limited to blood tests and imaging deemed necessary to safely discharge this patient at this time. All results given to and printed out for patient. I personally went over all the results with the patient and answered all questions. Patient will follow-up with PCP and or specialist as discussed. Return precautions given and understood.. 07/19 07:38 Order name: CBC with Diff; Complete Time: 09:21 rn 07/19 07:38 Order name: CMP; Complete Time: : rn 07/19 07:38 Order name: Lipase; Complete Time: : rn 07/19 07:38 Order name: CT Abd/Pelvis - IV Contrast Only; Complete Time: 09: rn 07/19 07:38 Order name: IV Saline Lock; Complete Time: :53 rn 07/19 07:38 Order name: Labs collected and sent; Complete Time: :53 rn Administered Medications: 07:53 Drug: NS 0.9% IV 1000 ml IV at 1 bolus Per protocol; to be given as a bolus over 60 kc6 minutes Route: IV; Rate: 1 bolus; Site: right antecubital; 10:37 Follow up: Response: No adverse reaction; IV Status: Completed infusion; IV Intake: kc6 1000ml 10:09 Drug: Fleet Enema SC 133 ml SC once; may repeat once Route: SC; kc6 10:36 Follow up: Response: No adverse reaction kc6 Disposition Summary: 07/19/24 10:40 Discharge Ordered Notes: Location: Home rn Problem: new rn Symptoms: have improved rn Condition: Stable rn Diagnosis - Constipation, unspecified rn - Fecal impaction rn Followup: rn - With: Private Physician - When: As needed - Reason: Recheck today's complaints, Re-evaluation by your physician Discharge Instructions: - Discharge Summary Sheet rn - Constipation, Adult rn - Fecal Impaction rn Forms: - Medication Reconciliation Form rn - 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
[2024-07-19 11:17] VITALS: BP 149/91; TEMP 98.8; O2SAT 99
== END 2024-07-19 10:55 | disposition home or self-care (01) ==
LOC: ER 07:32
DX: K56.41 Fecal impaction (principal)
CPT/HCPCS: 85025; 36415; 83690; 80053; 74177; Q9967; J7030

== ENCOUNTER 2025-02-19 16:20 | Emergency (ER) | payer OTHER ==
[2025-02-19 17:16] LABS: Influenza A Ag Negative; Influenza B Ag Negative; SARS-CoV-2 Antigen Rapid Res Negative (Negative)
--- NOTE | 2025-02-19 18:31 | RAD REPORT ---
EXAMINATION: ONE VIEW CHEST XR CLINICAL INDICATION: Female, 45 years old.,COUGH TECHNIQUE: Frontal chest projection is submitted. Examination is limited by patient positioning and t echnique. COMPARISON: No prior exam. FINDINGS: The lungs are well inflated and clear. No pneumothorax or sizable effusion. The heart is normal in s ize. Mediastinal contours are unremarkable. IMPRESSION: No acute intrathoracic abnormalities.
--- NOTE | 2025-02-19 18:41 | ER ---
Nurse's Notes [facility] Name: Sowmya Simms Age: 45 yrs Sex: Female : 1980 Arrival Date: 02/19/2025 Time: 16:20 Bed 4 Private MD: Diagnosis: Acute upper respiratory infection, unspecified Presentation: 02/19 16:33 Chief complaint: Patient states: Painful cough, sore throat, body aches for 5 days. ll1 Home covid test negative. Coronavirus screen: Client denies travel out of the [place] in the last 14 days. congestion, cough unrelated to allergies, diarrhea, fatigue, Client presents with at least one sign or symptom that may indicate coronavirus-19. Standard/surgical mask placed on the client. Ebola Screen: Patient denies travel to an Ebola-affected area in the 21 days before illness onset. Initial Sepsis Screen: Does the patient meet any 2 criteria? No. Patient's initial sepsis screen is negative. Does the patient have a suspected source of infection? No. Patient's initial sepsis screen is negative. Risk Assessment: Do you want to hurt yourself or someone else? Patient reports no desire to harm self or others. Onset of symptoms was February 15, 2025. 16:33 Method Of Arrival: Ambulatory ll1 16:33 Acuity: HENRI 3 ll1 Triage Assessment: 16:33 General: Appears uncomfortable, Behavior is calm, cooperative, appropriate for age, ll1 Reports fatigue for. Pain: Complains of pain in throat Quality of pain is described as aching. EENT: Reports pain when swallowing. Respiratory: Reports cough that is dry, pain with cough. GI: Reports diarrhea. 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 - Infectious Disease History:: Denies. - Social history:: Smoking status: Patient/guardian denies using tobacco. Screenin:47 [facility] ED Fall Risk Assessment (Adult) History of falling in the last 3 months, nh2 including since admission No falls in past 3 months (0 pts) Confusion or Disorientation No (0 pts) Intoxicated or Sedated No (0 pts) Impaired Gait No (0 pts) Mobility Assist Device Used No (0 pt) Altered Elimination No (0 pt) Score/Fall Risk Level 0 - 2 = Low Risk Oriented to surroundings, Maintained a safe environment, Educated pt \T\ family on fall prevention, incl call for assistance when getting out of bed, Assessed \T\ reinforced patient's understanding of fall precautions. Abuse screen: Denies threats or abuse. Denies injuries from another. Nutritional screening: No deficits noted. Tuberculosis screening: No symptoms or risk factors identified. Assessment: 16:47 General: Appears uncomfortable, Behavior is calm, cooperative, appropriate for age. nh2 Pain: Complains of pain in throat Pain does not radiate. Pain currently is 9 out of 10 on a pain scale. Quality of pain is described as aching, Pain began 02/15/2025 Is continuous, Also complains of shortness of breath, body aches, chills. Neuro: Level of Consciousness is awake, alert, obeys commands, Oriented to person, place, time, situation, Appropriate for age. Cardiovascular: Reports chest pain when coughing Patient's skin is warm and dry. Respiratory: Reports shortness of breath on exertion cough that is Airway is patent Trachea midline Respiratory effort is even, unlabored, Respiratory pattern is regular, symmetrical. GI: Abdomen is round non-distended, Reports diarrhea, since last night Patient currently denies nausea, vomiting. : No signs and/or symptoms were reported regarding the genitourinary system. Denies burning with urination. EENT: No signs and/or symptoms were reported regarding the EENT system. Derm: Skin is intact, Skin is normal. Musculoskeletal: Range of motion: intact in all extremities. 17:37 Reassessment: Patient appears in no apparent distress at this time. Patient and/or kj2 family updated on plan of care and expected duration. Pain level reassessed. Patient is alert, oriented x 3, equal unlabored respirations, skin warm/dry/pink. 18:30 Reassessment: Patient and/or family updated on plan of care and expected duration. Pain nh2 level reassessed. Patient is alert, oriented x 3, equal unlabored respirations, skin warm/dry/pink. Vital Signs: 16:33 BP 149 / 101; Pulse 93; Resp 17; Temp 98.7; Pulse Ox 100% ; Weight 72.57 kg; Height 5 ll1 ft. 3 in. ; Pain 8/10; 16:56 BP 116 / 98; Pulse 86; Resp 18; Pulse Ox 100% on R/A; nh2 17:37 BP 119 / 72; Pulse 72; Resp 18; Pulse Ox 100% ; kj2 18:35 BP 118 / 82; Pulse 68; Resp 18; Pulse Ox 100% on R/A; nh2 16:33 Body Mass Index 28.34 (72.57 kg, 160.02 cm) ll1 16:33 Pain Scale: Adult ll1 ED Course: 16:23 Patient arrived in ED. al6 16:24 [facility] Mitchell [facility]C [facility] kb 16:24 Williams Bolden MD is Attending Physician. kb 16:32 Arm band placed on Patient placed in an exam room, on a stretcher. ll1 16:34 Triage completed. ll1 16:47 Mario Suh Jr, COTY is Primary Nurse. nh2 16:47 Patient has correct armband on for positive identification. Bed in low position. Call nh2 light in reach. Side rails up X 1. Provided Education on: using call light for assistance. 16:47 Group A Streptococcus Rapid Sent. nh2 16:47 COVID-19 Ag + Flu A+B Ag Sent. nh2 16:47 No provider procedures requiring assistance completed. nh2 17:53 Throat Culture Sent. nh2 18:01 Chest Single View XRAY In Process Unspecified. EDMS 19:01 Patient admitted, IV remains in place. nh2 Administered Medications: 18:59 Drug: predniSONE PO 40 mg PO once Route: PO; nh2 18:59 Follow up: Response: Medication administered at discharge. nh2 Medication: 16:47 VIS not applicable for this client. nh2 Outcome: 18:40 Discharge ordered by . kb 19:01 Discharged to home ambulatory, nh2 19:01 Condition: stable 19:01 Discharge instructions given to patient, Instructed on discharge instructions, follow up and referral plans. medication usage, Demonstrated understanding of instructions, follow-up care, medications, Prescriptions given X 2, 19:02 Patient left the ED. nh2 Signatures: Dispatcher [employer] EDHI Deirdre Mitchell FNP-C FNP-Ckb Lewis, Lynsay, RN RN ll1 Alexa Acuna, COTY RN kj2 Vikash Rondon, Mario, RN RN nh2 Jacqueline Cloud al6 Corrections: (The following items were deleted from the chart) 16:36 16:33 BP 149 / 101; Pulse 93bpm; Resp 17bpm; Pulse Ox 100%; 72.57 kg; Height 5 ft. 3 ll1 in.; BMI: 28.3; Pain 8/10, Adult; ll1 16:51 16:47 General: Appears in no apparent distress. Behavior is calm, cooperative, nh2 appropriate for age, nh2 16:51 16:47 Pain: Denies pain. nh2 nh2 16:56 16:47 Pain: Complains of pain in throat Pain does not radiate. Pain currently is 6 out nh2 of 10 on a pain scale. Quality of pain is described as aching, Pain began 02/15/2025 Is continuous, Also complains of shortness of breath, body aches, chills nh2
--- NOTE | 2025-02-19 18:41 | EDPHYS ---
Physician Documentation [facility] Name: Sowmya Simms Age: 45 yrs Sex: Female : 1980 Arrival Date: 02/19/2025 Time: 16:20 Bed 4 Private MD: ED Physician Williams Bolden HPI: 02/19 16:44 This 45 yrs old Black Female presents to ER via Ambulatory with complaints of Flu kb Symptoms. 16:44 Pt is a 45 year old female who presents for cough, sore throat, sneezing and watery kb eyes that started 6 days ago. Denies fever, chills. Reports bodyaches started today. . [employer]: 17:30 LMP 01/23/2025, unknown nh2 Historical: - Allergies: 16:32 Nuts; ll1 16:32 SEAFOOD; ll1 - PMHx: 16:32 Asthma; ll1 - PSHx: 16:32 ankle surgery, ACL repair, tonsils (Asthma); ll1 - Immunization history:: Adult Immunizations up to date. - Infectious Disease History:: Denies. - Social history:: Smoking status: Patient/guardian denies using tobacco. ROS: 16:44 Constitutional: As per HPI kb Exam: 16:44 Constitutional: This is a well developed, well nourished patient who is awake, alert, kb and in no acute distress. Head/Face: Normocephalic, atraumatic. ENT: Moist Mucous membranes Cardiovascular: Regular rate Respiratory: Respirations even and unlabored. No increased work of breathing. Talking in full sentences Abdomen/GI: Soft, non-tender. No distention Skin: Warm, dry with normal turgor. Normal color. MS/ Extremity: Pulses equal, no cyanosis. Neurovascular intact. Full, normal range of motion. Neuro: Awake and alert, GCS 15, oriented to person, place, time, and situation. Vital Signs: 16:33 BP 149 / 101; Pulse 93; Resp 17; Temp 98.7; Pulse Ox 100% ; Weight 72.57 kg; Height 5 ll1 ft. 3 in. ; Pain 8/10; 16:56 BP 116 / 98; Pulse 86; Resp 18; Pulse Ox 100% on R/A; nh2 17:37 BP 119 / 72; Pulse 72; Resp 18; Pulse Ox 100% ; kj2 18:35 BP 118 / 82; Pulse 68; Resp 18; Pulse Ox 100% on R/A; nh2 16:33 Body Mass Index 28.34 (72.57 kg, 160.02 cm) ll1 16:33 Pain Scale: Adult ll1 MDM: 16:32 Medical Screening Exam initiated 16:44 Data reviewed: vital signs, nurses notes. kb 18:37 Independent interpretation of the following test(s) in the Emergency Department X-Ray: kb My interpretation is no pneumonia on CXR. 18:40 Differential diagnosis: cough, flu, strep, uri, pneumonia. I considered the following kb discharge prescriptions or medication management in the emergency department I discussed and recommended Over The Counter medications, Antibiotics: At this time antibiotics are not recommended. Counseling: I had a detailed discussion with the patient and/or guardian regarding the historical points, exam findings, and any diagnostic results supporting the discharge/admit diagnosis, lab results, radiology results, the need for outpatient follow up, a family practitioner, to return to the emergency department if symptoms worsen or persist or if there are any questions or concerns that arise at home. 02/19 16:33 Order name: COVID-19 Ag + Flu A+B Ag; Complete Time: 17:20 kb 02/19 16:33 Order name: Group A Streptococcus Rapid; Complete Time: 17:20 kb 02/19 17:19 Order name: Throat Culture [facility] 02/19 17:21 Order name: Chest Single View XRAY; Complete Time: 18:34 kb 02/19 16:50 Order name: Labs - recollect needed: please recollect strep swab using the purple top em1 swab; Complete Time: 16:53 Administered Medications: 18:59 Drug: predniSONE PO 40 mg PO once Route: PO; nh2 18:59 Follow up: Response: Medication administered at discharge. nh2 Disposition Summary: 02/19/25 18:40 Discharge Ordered Notes: Location: Home Condition: Stable kb Diagnosis - Acute upper respiratory infection, unspecified kb Followup: kb - With: Emergency Department - When: As needed - Reason: Worsening of condition Followup: kb - With: Private Physician - When: 2 - 3 days - Reason: Recheck today's complaints, Continuance of care, Re-evaluation by your physician Discharge Instructions: - Discharge Summary Sheet kb - Upper Respiratory Infection, Adult, [id number] kb - Viral Respiratory Infection, [id number] kb Forms: - Medication Reconciliation Form kb - Antibiotic Education kb - Prescription Opioid Use kb - Patient Portal Instructions kb - Leadership Thank You Letter kb Prescriptions: - Prednisone 20 mg Oral Tablet - take 1 tablet ORAL route once daily for 5 days; 5 tablet; Refills: 0, Product kb Selection Permitted - Tessalon Perles 100 mg Oral Capsule - take 1 capsule ORAL route every 8 hours As needed; 15 capsule; Refills: 0, kb Product Selection Permitted Signatures: Dispatcher [employer] Deirdre Rogers, [employer] MELISA-Miguel Angel Tapia em1 Annita Jackson, RN RN ll1 Mario Suh Jr RN RN nh2
[2025-02-19] MEDS ORDERED: predniSONE 20 MG TAB ONE (18:54)
[2025-02-19 19:37] VITALS: TEMP 98.7; O2SAT 100
[2025-02-19 19:42] VITALS: BP 118/82
== END 2025-02-19 19:02 | disposition home or self-care (01) ==
LOC: ER 16:20
DX: J06.9 Acute upper respiratory infection, unspecified (principal); Z11.52 Encounter for screening for COVID-19
CPT/HCPCS: 87070; 36415; 71045; 99284; 87428; J7512